=== PATIENT | female | born 2000 | race Caucasian/White ===

== ENCOUNTER 2021-04-12 21:34 | Emergency (ER) | payer OTHER ==
--- OUTSIDE RECORDS SUMMARY | 2021-04-12 21:41 | XMS REPORT | Continuity of Care Document ---
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 ULTRASOUND REPEAT 2019-04-26 00:00:00 [facility] Plan of Care Planned Activity Planned Date Details Comments Source Future Scheduled 2022-06-13 Screening for Pete Cotton lt Test 00:00:00 malignant neoplasm of cervix (procedure) [code = 499878987] Future Scheduled 2022-01-15 COVID-19 Vaccine Postponed from [facility] Test 00:00:00 (1) [code = 2011 COVID-19 Vaccine (Patient Refused) (1)] Future Scheduled 2021-06-13 IMM Influenza Pete Cotton [facility] Test 00:00:00 Seasonal Jun to November (>/= 19 yrs) [code = IMM Influenza Seasonal Jun to November (>/= 19 yrs)] Diagnostic Test 2020-03-20 urinalysis, [place] Pending 00:00:00 dipstick [code = Medical José up urinalysis, dipstick] Diagnostic Test 2020-03-20 test, [place] Pending 00:00:00 urine [code = Medical Group test, urine] Diagnostic Test 2020-03-20 culture, urine [place] Pending 00:00:00 [code = culture, Medical José up urine] Instructions [facility] Encounters Start End Encounter Admission Attending Care Care Encounter Source Date/Time Date/Time Type Type Clinicians Facility Department ID 2021-03-28 2021-03-28 Telephone JEEVAN Cornell 6410 [id number] 00:00:00 00:00:00 [facility]UGH[facility] [id number] Health S [id number] 2021-03-18 2021-03-18 Telephone JEEVAN oWrley [id number] 00:00:00 00:00:00 Katrin YAP [id number] MEDICAL [id number] [facility] [id number] 2021-03-11 2021-03-11 Office Kandy Howe [facility] 7 [facility] 00:00:00 00:00:00 Visit Miguel Haq [id number] [facility] Bertha Carpenter Krishnan Magali Dilan [facility] 2021-02-03 2021-02-03 Office Katrin Worley [facility] 74 [facility] 00:00:00 00:00:00 Visit Santino Laureen 1052 [id number] [facility] 2021-01-16 2021-01-20 Outpatient SUE, [facility] [id number] [facility] 15:03:38 08:55:31 TJ 2021-01-16 2021-01-16 Outpatient PRESTON, [facility] [id number] [facility] 15:03:34 16:09:38 SINDHU 2021-01-15 2021-01-15 Outpatient ALYSE, [facility] [id number] [place] 14:11:31 14:26:12 [facility] 2021-01-10 2021-01-10 Office Rubin Almeida [facility] [id number] [facility] 00:00:00 00:00:00 Visit Edie Romero [id number] [facility] 2020-12-31 2020-12-31 Emergency Herbert, [facility] [id number] 03:07:00 03:20:00 Chaz Salmon [id number] [place] 4.2.7.2.686 [place] [id number] 2020-12-28 2020-12-28 Emergency Yarine, [facility] [id number] 21:22:00 23:49:00 Mattie Salmon [id number] [place] 4.2.7.2.686 [place] [id number] 2020-12-19 2020-12-19 Office Katrin Worley [facility] 74 [facility] 00:00:00 00:00:00 Visit SantinoLaureen 1040 8 [facility] Makenna Max [facility] 2020-10-12 2020-10-12 Emergency [facility] [id number] [place] 12:45:00 13:30:00 [facility] 2020-08-27 2020-08-27 UTI SITE E DANIELLE, [facility] [id number] 21:01:00 23:53:00 NOT CLAY [facility] L ukes - SPECIFIED N, [address], [place] [address] 2020-08-27 2020-08-27 Inpatient [facility] [id number] [facility] 00:00:00 00:00:00 [facility] [id number] [facility], [id number] BYPASS, ([place] [address] 2020-08-27 2020-08-27 Inpatient [facility] [id number] [facility] 00:[facility]00 00:00:00 [facility] [id number] [facility], [id number] BYPASS, ([place] [address] 2020-07-10 2020-07-10 Broker In Charge 2, Adc Lab [facility] [id number] 10:53:29 11:08:29 Visit Viky 350.1.13.10 [place] 4.2.7.2.686 Professio [id number] 2020-07-02 2020-07-02 Orders Doctor WIL [id number] 00:00:00 00:00:00 Only Unassigned, SUKHJINDER 350.1.13.10 [place] [facility] 4.2.7.2.686 [id number] 2020-03-20 2020-03-20 Senait Vail MM [place] - [id number] [place] 00:00:00 00:00:00 Discovery akosua Paulino WHNP: [address] [address], [place] [address] , Ph. [phone] 2020-03-11 2020-03-11 Mark MENDOZA [place] - [id number] M at[place] 00:00:00 00:00:00 Mary Guerrero MD: [facility] [address] Progr am , Ph. ([phone]) --[phone] 2020-02-12 Senait Vail [facility] [place] - [id number] [place] 00:00:00 00:00:00 Discovery akosua Paulino WHNP: [address] [place] [address] , Ph. [phone] 2019-09-07 2019-09-07 Wil MENDOZA [place] - [id number] M at[place]or 00:00:00 00:00:00 Nader Valladares PSYD: 1700 [facility] E[facility], [facility], Behavioral He [facility] [address] [facility] am , Ph. ([phone]) --[phone] 2019-08-21 Mark REJI [place] - [id number] M at[place]or 00:00:00 00:00:00 Mary Guerrero MD: [facility] [facility] Healt Av, [facility], [facility] [address] , Ph. ([phone]) --[phone] 2019-08-07 Shahzad [facility] [place] - [id number] M at[place]or 00:00:00 00:00:00 Discovery akosua Mead MD: [address] [place] [address] , Ph. [phone] 2019-07-14 2019-07-14 Shahzad FUENTES [place] - [id number] M at[place]or 00:00:00 00:00:00 Discovery akosua Mead MD: [address] [place] [address] , Ph. [phone] 2019-06-27 2019-06-27 Shahzad [facility] [place] - [id number] M at[place]or 00:00:00 00:00:00 Discovery akosua Mead MD: [address] [place] [address] , Ph. [phone] 2019-06-13 2019-06-13 Senait Vail [facility] [place] - [id number] [place] 00:00:00 00:00:00 Discovery akosua Paulino WHNP: [facility] Medical [address] [address] , Ph. [phone] 2019-05-30 2019-05-30 Radha [facility] [place] - [id number] M at[place]or 00:00:00 00:00:00 Wayne Harvey [facility] MD: [address] [place] [address] , Ph. [phone] 2019-05-01 2019-05-01 Shahzad [facility] [place] - [id number] M at[place]or 00:00:00 00:00:00 Discovery akosua Mead MD: [address] [place] [address] , Ph. [phone] 2019-04-26 2019-04-26 Shahzad [facility] [place] - [id number] M atagor 00:00:00 00:00:00 Discovery akosua Mead MD: [address] [place] [address] , Ph. [phone] 2019-02-17 2019-02-17 Outpatient [facility] [id number] [place] 09:43:48 09:43:48 Health 2019-02-16 2019-02-16 Outpatient [facility] [id number] [place] 00:00:00 00:00:00 Health 2019-02-15 2019-02-15 Outpatient [facility] [id number] [place] 13:34:01 13:34:01 Health 2019-02-15 2019-02-15 Outpatient [facility] [id number] [place] 07:37:37 07:37:37 Health 2019-02-15 2019-02-15 Outpatient [facility] [id number] [place] 00:00:00 00:00:00 Health Results Test Description Test Time Test Comments Results Result Comments Source alpha-1 fetoprotein, maternal ,serum, multiples of median 20 03-03-29 12:23:00 Test Item Value Reference Range Interpretation Comme nts alpha-1 fetoprotein, maternal ,serum, multiples of median (t est code = 0.98 (?) 3105) [facility], [id number] 12:23:00 Test Item Value Reference Range Interpretation Comments alpha-1 fetoprotein, serum (test 36.9 ng/mL code = 2754) [facility] interpretation of [id number] 12:23:00 Test Item Value Reference Range Interpretation Comments alpha-fetoprotein Screen negative for interpretation of results open NTD. Please (test code = 8076) Note: Th... [facility] [id number] 12:22:00 Test Item Value Reference Range Interpretation Comments urine culture (test Greater than 100,000 code = 630-4) CFU/mL of [facility] HospitalCandida Vaginitis Panel by Real-Time PCR (albicans,glabrata,tropicalis,parapsilosis)2021-02-03 19:06:00 Test Item Value Reference Range Interpretation Comments Caron Vaginitis Panel by Real-Time DETECTED NOT DETECTED A PCR (albicans,glabrata,tropicalis,paraps ilosis) (test code = 828934) [facility] by Real-Time [id number] 19:06:00 Test Item Value Reference Range Interpretation Comments Gardnerella vaginalis by Real-Time DETECTED NOT DETECTED A PCR (test code = 198312) [facility] HospitalTRICHOMONAS VAGINALIS DNA [id number] 19:06:00 Test Item Value Reference Range Interpretation Comments TRICHOMONAS VAGINALIS DNA PROBE NOT DETECTED NOT DETECTED N (test code = 022008) [facility] [id number] 17:57:00 Test Item Value Reference Range Interpretation Comments urine culture (test 50,000-100,000 CFU/mL of A code = 630-4) Group B Streptococcus ... [facility] HospitalCoronavirus, CoVID-19 - [id number] 01:07:00 Test Item Value Reference Interpretation Comments Range CoVID-19 Not Detected Not Detected This nucleic ac id amplification (SARS-CoV- test was danay zavaleta and its 2) (test performancechar acteristics code = determined by Klaudia Taylor 42131-2) Laboratories. [facility] acidamplificati on tests include RT-PCR and TMA. This test has not beenFDA chago ared or approved. This test has been authorized by F AKOSUA underan Emergency Use A uthorization (EUA). This anamika t is only authorizedfor t he duration of time the declar ation that circumstances e xistjustifying the authorizati on of the emergency use o f in vitrodiagnostic tests for detection of SA RS-CoV-2 virus and/or diagnosi sof COVID-19 infection under section 564(b)(1) of th e Act, 21 U.S.C.360bbb-3( b) (1), unless the authorizati on is terminated or revokedsoone r.When diagnostic test ing is negative, the possibility of a falsenegative r esult should be considered in t he context of a patient'srecent exposures and the presence of clinical signs and symptomscon sistent with COVID-19. An in dividual without symptoms of COV ID-19and who is not shedding SA RS-CoV-2 virus would expect to have anegative (not detected) result in this assay. JORGE (test Performed at: code = - [facility] JORGE) [address] [id number] Director: Brendon Valerio MD, Phone: [phone] [facility]-COV-2, KJ 2 DAY [id number] 01:07:00 Test Item Value Reference Range Interpretation Comments SARS-CoV-2, KJ 2 Performed DAY TAT (test code = 164472348) JORGE (test code = Performed at: - JORGE) [address] [id number] Director: Feliz Strar MD, Phone: [phone] [facility] RAPID [id number] 00:00:00 Test Item Value Reference Range Interpretation Comments Rapid HIV Result (test code = 09495) Negative Rapid HIV Control (test code = Pass 96226) [facility] [id number] 15:58:00 Test Item Value Reference Range Interpretation Comments Neisseria gonorrhoeae DNA probe NOT DETECTED NOT DETECTED N (test code = 42320-9) [facility] Hospitalchlamydia DNA [id number] 15:58:00 Test Item Value Reference Range Interpretation Comments chlamydia DNA probe (test code = NOT DETECTED NOT DETECTED N 28398-0) [facility] Hospitalurine [id number] 15:57:00 Test Item Value Reference Range Interpretation Comments urine culture (test Greater than 100,000 A code = 630-4) CFU/mL of Escherichia coli [facility] HospitalCandida Vaginitis Panel by Real-Time PCR (albicans,glabrata,tropicalis,parapsilosis)2020-12-19 15:46:00 Test Item Value Reference Range Interpretation Comments Caron Vaginitis Panel by NOT DETECTED NOT DETECTED N Real-Time PCR (albicans,glabrata,tropicalis,pa rapsilosis) (test code = 084313) [facility] vaginalis by Real-Time [id number] 15:46:00 Test Item Value Reference Range Interpretation Comments Gardnerella vaginalis by NOT DETECTED NOT DETECTED N Real-Time PCR (test code = 222023) [facility] HospitalTRICHOMONAS VAGINALIS DNA [id number] 15:46:00 Test Item Value Reference Range Interpretation Comments TRICHOMONAS VAGINALIS DNA PROBE NOT DETECTED NOT DETECTED N (test code = 158877) [facility] [id number] 15:46:00 Test Item Value Reference Range Interpretation Comments Rh antigen (test code = 255) RH(D) POSITIVE [facility] HospitalABO blood [id number] 15:46:00 Test Item Value Reference Range Interpretation Comments ABO blood group (test code = 116) A [facility] [id number] 15:46:00 Test Item Value Reference Range Interpretation Comments Rh antibody (test code NO ANTIBODIES DETECTED N = 256) [facility] Hospitalrapid plasma reagin antibody, [id number] 15:46:00 Test Item Value Reference Range Interpretation Comments rapid plasma reagin antibody, NON-REACTIVE NON-REACTIVE N serum (test code = 5291-0) [facility] HospitalHepatitis C Antibody, Signal to [id number] 15:46:00 Test Item Value Reference Range Interpretation Comments Hepatitis C Antibody, 0.03 (unknown unit) <1.00 N Signal to Cut-Off (test code = 559967) [facility] Hospitalhepatitis C antibody, [id number] 15:46:00 Test Item Value Reference Range Interpretation Comments hepatitis C antibody, serum NON-REACTIVE NON-REACTIVE N (test code = 5199-5) [facility] Hospitalhepatitis B surface [id number] 15:46:00 Test Item Value Reference Range Interpretation Comments hepatitis B surface antigen NON-REACTIVE NON-REACTIVE N (test code = 79) [facility] Healthbasophils as percent of blood [id number] 15:46:00 Test Item Value Reference Range Interpretation Comments basophils as percent of blood 0.5 % N leukocytes (test code = 707-0) [facility] Hospitaleosinophils as percent of blood [id number] 15:46:00 Test Item Value Reference Range Interpretation Comments eosinophils as percent of blood 0.8 % N leukocytes (test code = 714-6) [facility] Healthmonocytes as percent of blood [id number] 15:46:00 Test Item Value Reference Range Interpretation Comments monocytes as percent of blood 6.2 % N leukocytes (test code = 5905-5) [facility] Hospitallymphocytes as percent of blood [id number] 15:46:00 Test Item Value Reference Range Interpretation Comments lymphocytes as percent of blood 16.8 % N leukocytes (test code = 736-9) [facility] Hospitalneutrophils as percent of blood [id number] 15:46:00 Test Item Value Reference Range Interpretation Comments neutrophils as percent of blood 75.7 % N leukocytes (test code = 770-8) [facility] Hospitalbasophil count, [id number] 15:46:00 Test Item Value Reference Range Interpretation Comments basophil count, absolute (test 43 cells/uL 0-200 N code = 63460-5) [facility] HospitalAbsolute Eosinophil [id number] 15:46:00 Test Item Value Reference Range Interpretation Comments Absolute Eosinophil count (test 69 cells/mcL 15-500 N code = 70200-6) [facility] HospitalAbsolute Monocyte [id number] 15:46:00 Test Item Value Reference Range Interpretation Comments Absolute Monocyte count (test 533 cells/mcL 200-950 N code = 42706-1) [facility] Hospitallymphocytes, [id number] 15:46:00 Test Item Value Reference Range Interpretation Comments lymphocytes, absolute (test 1445 CELLS/UL 850-3900 N code = 70296-9) [facility] HospitalAbsolute Neutrophil [id number] 15:46:00 Test Item Value Reference Range Interpretation Comments Absolute Neutrophil count 6510 cells/mcL 0565-0610 N (test code = 71644-1) [facility] [id number] 15:46:00 Test Item Value Reference Range Interpretation Comments mean platelet volume (test code = 12.0 fL 7.5-12.5 N 776-5) [facility] Hospitalplatelet [id number] 15:46:00 Test Item Value Reference Range Interpretation Comments platelet count (test code = 323 THOUSAND/UL 140-400 N 777-3) [facility] Hospitalred blood cell distribution [id number] 15:46:00 Test Item Value Reference Range Interpretation Comments red blood cell distribution width 19.8 % 11.0-15.0 H (test code = 788-0) [facility] corpuscular hemoglobin concentration, [id number] 15:46:00 Test Item Value Reference Range Interpretation Comments mean corpuscular hemoglobin 30.4 G/DL 32.0-36.0 L concentration, RBC (test code = 786-4) [facility] corpuscular hemoglobin, [id number] 15:46:00 Test Item Value Reference Range Interpretation Comments mean corpuscular hemoglobin, RBC 21.0 pg 27.0-33.0 L (test code = 785-6) [facility] corpuscular volume, [id number] 15:46:00 Test Item Value Reference Range Interpretation Comments mean corpuscular volume, RBC (test 69.0 fL 80.0-100.0 L code = 787-2) [facility] Hospitalhematocrit, [id number] 15:46:00 Test Item Value Reference Range Interpretation Comments hematocrit, blood (test code = 4544-3) 33.2 % 35.0-45.0 L [facility] Hospitalhemoglobin, [id number] 15:46:00 Test Item Value Reference Range Interpretation Comments hemoglobin, blood (test code = 10.1 g/dL 11.7-15.5 L 718-7) [facility] Hospitalerythrocyte (RBC) [id number] 15:46:00 Test Item Value Reference Range Interpretation Comments erythrocyte (RBC) count (test 4.81 MILLION/UL 3.80-5.10 N code = 789-8) [facility] Hospitalleukocyte count, [id number] 15:46:00 Test Item Value Reference Range Interpretation Comments leukocyte count, blood (test 8.6 THOUSAND/UL 3.8-10.8 N code = 6690-2) [facility] Hospitalblood glucose, 1 hour after 50 gm oral [id number] 15:46:00 Test Item Value Reference Range Interpretation Comments blood glucose, 1 hour after 50 gm 78 mg/dL <135 N oral glucose (test code = 1039) [facility], serum, [id number] 15:46:00 Test Item Value Reference Range Interpretation Comments rubella antibody, serum, IgM (test <20.00 N code = 1015) [facility], serum, [id number] 15:46:00 Test Item Value Reference Range Interpretation Comments rubella antibody, serum, 3.85 (unknown unit) H IgG (test code = 5334-8) [facility] HospitalHIV-CMIA (Chemiluminescent Microparticle Immuno Assay) 2020-12-19 15:46:00 Test Item Value Reference Range Interpretation Comments HIV-CMIA (Chemiluminescent NON-REACTIVE NON-REACTIVE N Microparticle Immuno Assay) (test code = 801108) [facility] HospitalHerpes Simplex Virus [id number] 14:04:30 Test Item Value Reference Range Interpretation Comments Herpes Simplex Virus Genital (test code no = 4258) [facility] HospitalCystic Fibrosis DNA, Whole [id number] 00:00:00 Test Item Value Reference Range Interpretation Comments Cystic Fibrosis DNA, Whole Blood Negative N (test code = 75862) [facility] Hospitalbeta HCG, urine, xawasgacxpymcbjg6238-45-50 13:23:49 Test Item Value Reference Range Interpretation Comments beta HCG, urine, semiquantitative positive (test code = 2106-3) [facility] [id number] 13:12:01Sanam Tilley ResidentDO 10/12/2020 1:26 PMBedside Ultrasound Date/Time: 10/12/2020 1:18 PMPerformed by: Sanam Tilley ResidentDOAuthorized by: Lilia Olmos MD Consent: Consent obtained: Verbal Consent given by: PatientPost-procedure details: Patient tolerance of procedure: Toleratedwell, no immediate complicationsComments: Bedside right LE US for DVT. Indication - RLE pain and swelling. Femoral (at location of Saphenous, fem artery bifurcation, fem vein bifurcation) and popliteal veins visualized and fully compressible. Negative study. Performed and interpreted by me.[facility] 2020-08-27 23:20:00 Test Item Value Reference Range Interpretation Comments Color (test code = UCOLR) Yellow Clarity (test code = UCLAR) Sl Cloudy Glucose (test code = UGLUC) NEGATIVE NEGATIVE N Bilirubin (test code = UBILI) NEGATIVE NEGATIVE N Ketones (test code = UKET) NEGATIVE NEGATIVE N Specific [place] (test code = >=1.030 1.005-1.030 A USPGR) Blood (test code = UBLD) MODERATE NEGATIVE A PH (test code = UPH) 6.0 4.5-8.0 A Protein (test code = UPROT) 100 NEGATIVE A Urobilinogen (test code = U UROB) 0.2 >0.2 N Nitrite (test code = UNITR) NEGATIVE NEGATIVE N Leukocyte Esterase (test code = SMALL NEGATIVE A ULEUK) WBC (test code = WBCUR) TNTC 0-5 A RBC (test code = RBCUR) TNTC 0-5 A Epithial Cells (test code = U EPI) 5-10 0-10 A Bacteria (test code = UBACT) 3+ None Seen,Trace A TEST, Urine [id number] 23:20:00 Test Item Value Reference Range Interpretation Comments (Urine) (test code = Negative PREGU) If a specimen is collected by a nurse, then you MUST fill out the Collected and Collected By spencer Urinalysis macro (dipstick) panel - [id number] 14:39:06 Test Item Value Reference Range Interpretation Comments Leukocytes (test code = Leukocytes) Small Nitrite (test code = Nitrite) positive Urobilinogen (test code = .2 Urobilinogen) Protein (test code = Protein) 30 pH (test code = pH) 6.5 Blood (test code = Blood) Large Specific [place] (test code = 1.030 Specific [place]) Ketone (test code = Ketone) Trace Bilirubin (test code = Bilirubin) Negative Glucose (test code = Glucose) Negative Appearance (test code = Appearance) Clear Color (test code = Color) Yellow [facility]dip[facility] panel - [id number] 14:39:06 Test Item Value Reference Range Interpretation Comments Leukocytes (test code = Leukocytes) Small Nitrite (test code = Nitrite) positive Urobilinogen (test code = .2 Urobilinogen) Protein (test code = Protein) 30 pH (test code = pH) 6.5 Blood (test code = Blood) Large Specific [place] (test code = 1.030 Specific [place]) Ketone (test code = Ketone) Trace Bilirubin (test code = Bilirubin) Negative Glucose (test code = Glucose) Negative Appearance (test code = Appearance) Clear Color (test code = Color) Yellow [facility], [id number] 14:26:06 Test Item Value Reference Range Interpretation Comments Test (test code = negative Test) [facility] W Auto Differential panel - [id number] 02:47:00 Test Item Value Reference Range Interpretation Comments white blood count (test code = 11.6 K/uL 4.0-11.5 white blood count) red blood count (test code = red 3.86 M/uL 3.80-5.20 blood count) hemoglobin (test code = 10.6 g/dL 10.5-15.7 hemoglobin) hematocrit (test code = 32.1 % 34.0-50.0 L hematocrit) Erythrocyte mean corpuscular 83.2 fL 86-100 L volume [Entitic volume] (test code = 80521-3) mean corpuscular hemoglobin (test 27.5 pg 26.2-33.4 code = mean corpuscular hemoglobin) mean corpuscular HGB conc (test 33.0 g/dL 30-34 code = mean corpuscular HGB conc) red cell distribution width (test 15.5 % 12.0-15.5 code = red cell distribution width) platelet count (test code = 162 K/uL 165-450 L platelet count) mean platelet volume (test code = 12.8 fL 9.4-12.6 H mean platelet volume) Neutrophils.segmented/100 65.4 % 44.4-80.1 leukocytes in Blood (test code = 39575-7) Granulocytes Immature [#/volume] 0.1 K/uL 0.0-0.03 H in Blood (test code = 83685-7) lymphocyte% (test code = 24.5 % 10.0-50.0 lymphocyte%) mono % (test code = mono %) 7.3 % 3.6-12.0 eos % (test code = eos %) 1.9 % 0.0-5.4 Basophils/100 leukocytes in 0.3 % 0.1-1.2 Unspecified specimen (test code = 94267-2) Neutrophils.band form [#/volume] 7.60 K/uL 1.56-6.13 H in Blood (test code = 70903-7) Lymphocytes [#/volume] in 2.9 K/uL 1.18-3.74 Unspecified specimen by Automated count (test code = 67960-0) mono # (test code = mono #) 0.85 K/uL 0.24-0.86 eos # (test code = eos #) 0.22 K/uL 0.04-0.36 basophil # (test code = basophil 0.04 K/uL 0.01-0.08 #) NRBC% (test code = NRBC%) 0 /100 WBC 0-0.2 NRBC# (test code = NRBC#) 0 K/uL [facility] W Auto Differential panel - [id number] 00:00:00 Test Item Value Reference Range Interpretation Comments white blood count (test code = 11.6 K/uL 4.0-11.5 white blood count) red blood count (test code = red 3.86 M/uL 3.80-5.20 blood count) hemoglobin (test code = 10.6 g/dL 10.5-15.7 hemoglobin) hematocrit (test code = 32.1 % 34.0-50.0 L hematocrit) Erythrocyte mean corpuscular 83.2 fL 86-100 L volume [Entitic volume] (test code = 98275-9) mean corpuscular hemoglobin (test 27.5 pg 26.2-33.4 code = mean corpuscular hemoglobin) mean corpuscular HGB conc (test 33.0 g/dL 30-34 code = mean corpuscular HGB conc) red cell distribution width (test 15.5 % 12.0-15.5 code = red cell distribution width) platelet count (test code = 162 K/uL 165-450 L platelet count) mean platelet volume (test code = 12.8 fL 9.4-12.6 H mean platelet volume) Neutrophils.segmented/100 65.4 % 44.4-80.1 leukocytes in Blood (test code = 58023-6) Granulocytes Immature [#/volume] 0.1 K/uL 0.0-0.03 H in Blood (test code = 55788-9) lymphocyte% (test code = 24.5 % 10.0-50.0 lymphocyte%) mono % (test code = mono %) 7.3 % 3.6-12.0 eos % (test code = eos %) 1.9 % 0.0-5.4 Basophils/100 leukocytes in 0.3 % 0.1-1.2 Unspecified specimen (test code = 70779-5) Neutrophils.band form [#/volume] 7.60 K/uL 1.56-6.13 H in Blood (test code = 69506-6) Lymphocytes [#/volume] in 2.9 K/uL 1.18-3.74 Unspecified specimen by Automated count (test code = 10331-6) mono # (test code = mono #) 0.85 K/uL 0.24-0.86 eos # (test code = eos #) 0.22 K/uL 0.04-0.36 basophil # (test code = basophil 0.04 K/uL 0.01-0.08 #) NRBC% (test code = NRBC%) 0 /100 WBC 0-0.2 NRBC# (test code = NRBC#) 0 K/uL [facility] W Auto Differential panel - [id number] 10:04:00 Test Item Value Reference Range Interpretation Comments white blood count (test code = 8.8 K/uL 4.0-11.5 white blood count) red blood count (test code = red 4.39 M/uL 3.80-5.20 blood count) hemoglobin (test code = 12.3 g/dL 10.5-15.7 hemoglobin) hematocrit (test code = 37.9 % 34.0-50.0 hematocrit) Erythrocyte mean corpuscular 86.3 fL 86-100 volume [Entitic volume] (test code = 97835-8) mean corpuscular hemoglobin (test 28.0 pg 26.2-33.4 code = mean corpuscular hemoglobin) mean corpuscular HGB conc (test 32.5 g/dL 30-34 code = mean corpuscular HGB conc) red cell distribution width (test 15.4 % 12.0-15.5 code = red cell distribution width) platelet count (test code = 186 K/uL 165-450 platelet count) mean platelet volume (test code = 12.7 fL 9.4-12.6 H mean platelet volume) Neutrophils.segmented/100 74.3 % 44.4-80.1 leukocytes in Blood (test code = 02573-9) Granulocytes Immature [#/volume] 0.0 K/uL 0.0-0.03 H in Blood (test code = 33097-1) lymphocyte% (test code = 18.0 % 10.0-50.0 lymphocyte%) mono % (test code = mono %) 5.2 % 3.6-12.0 eos % (test code = eos %) 1.5 % 0.0-5.4 Basophils/100 leukocytes in 0.5 % 0.1-1.2 Unspecified specimen (test code = 91969-1) Neutrophils.band form [#/volume] 6.55 K/uL 1.56-6.13 H in Blood (test code = 54896-4) Lymphocytes [#/volume] in 1.6 K/uL 1.18-3.74 Unspecified specimen by Automated count (test code = 85966-0) mono # (test code = mono #) 0.46 K/uL 0.24-0.86 eos # (test code = eos #) 0.13 K/uL 0.04-0.36 basophil # (test code = basophil 0.04 K/uL 0.01-0.08 #) NRBC% (test code = NRBC%) 0 /100 WBC 0-0.2 NRBC# (test code = NRBC#) 0 K/uL [facility] HospitalReagin [facility] [Presence] in Serum by [id number] 10:04:00 Test Item Value Reference Range Interpretation Comments Reagin Ab [Presence] in Serum by nonreactive nonreactive RPR (test code = 59181-6) [facility] HospitalHepatitis B virus surface Ag [Presence] in Serum 2019-06-27 10:04:00 Test Item Value Reference Range Interpretation Comments .hepatitis B surface antigen (test negative negative code = .hepatitis B surface antigen) [facility] W Auto Differential panel - [id number] 00:00:00 Test Item Value Reference Range Interpretation Comments white blood count (test code = 8.8 K/uL 4.0-11.5 white blood count) red blood count (test code = red 4.39 M/uL 3.80-5.20 blood count) hemoglobin (test code = 12.3 g/dL 10.5-15.7 hemoglobin) hematocrit (test code = 37.9 % 34.0-50.0 hematocrit) Erythrocyte mean corpuscular 86.3 fL 86-100 volume [Entitic volume] (test code = 12093-5) mean corpuscular hemoglobin (test 28.0 pg 26.2-33.4 code = mean corpuscular hemoglobin) mean corpuscular HGB conc (test 32.5 g/dL 30-34 code = mean corpuscular HGB conc) red cell distribution width (test 15.4 % 12.0-15.5 code = red cell distribution width) platelet count (test code = 186 K/uL 165-450 platelet count) mean platelet volume (test code = 12.7 fL 9.4-12.6 H mean platelet volume) Neutrophils.segmented/100 74.3 % 44.4-80.1 leukocytes in Blood (test code = 94521-0) Granulocytes Immature [#/volume] 0.0 K/uL 0.0-0.03 H in Blood (test code = 64690-0) lymphocyte% (test code = 18.0 % 10.0-50.0 lymphocyte%) mono % (test code = mono %) 5.2 % 3.6-12.0 eos % (test code = eos %) 1.5 % 0.0-5.4 Basophils/100 leukocytes in 0.5 % 0.1-1.2 Unspecified specimen (test code = 20832-4) Neutrophils.band form [#/volume] 6.55 K/uL 1.56-6.13 H in Blood (test code = 30462-4) Lymphocytes [#/volume] in 1.6 K/uL 1.18-3.74 Unspecified specimen by Automated count (test code = 19450-3) mono # (test code = mono #) 0.46 K/uL 0.24-0.86 eos # (test code = eos #) 0.13 K/uL 0.04-0.36 basophil # (test code = basophil 0.04 K/uL 0.01-0.08 #) NRBC% (test code = NRBC%) 0 /100 WBC 0-0.2 NRBC# (test code = NRBC#) 0 K/uL [facility]Re[facility] [Presence] in Serum by [id number] 00:00:00 Test Item Value Reference Range Interpretation Comments Reagin Ab [Presence] in Serum by nonreactive nonreactive RPR (test code = 26980-0) [facility] HospitalHepatitis B virus surface Ag [Presence] in Serum 2019-06-27 00:00:00 Test Item Value Reference Range Interpretation Comments .hepatitis B surface antigen (test negative negative code = .hepatitis B surface antigen) [facility] HospitalUrinalysis macro (dipstick) panel - [id number] 09:50:31 Test Item Value Reference Range Interpretation Comments Leukocytes (test code = Leukocytes) Trace Nitrite (test code = Nitrite) negative Urobilinogen (test code = .2 Urobilinogen) Protein (test code = Protein) Negative pH (test code = pH) 7.0 Blood (test code = Blood) Negative Specific [place] (test code = 1.020 Specific [place]) Ketone (test code = Ketone) Negative Bilirubin (test code = Bilirubin) Negative Glucose (test code = Glucose) Negative Appearance (test code = Appearance) Clear Color (test code = Color) Yellow [facility] HospitalUrinalysis macro (dipstick) panel - [id number] 09:50:31 Test Item Value Reference Range Interpretation Comments Leukocytes (test code = Leukocytes) Trace Nitrite (test code = Nitrite) negative Urobilinogen (test code = .2 Urobilinogen) Protein (test code = Protein) Negative pH (test code = pH) 7.0 Blood (test code = Blood) Negative Specific [place] (test code = 1.020 Specific [place]) Ketone (test code = Ketone) Negative Bilirubin (test code = Bilirubin) Negative Glucose (test code = Glucose) Negative Appearance (test code = Appearance) Clear Color (test code = Color) Yellow [facility] HospitalUr[facility]ysis macro (dipstick) panel - [id number] 09:50:31 Test Item Value Reference Range Interpretation Comments Leukocytes (test code = Leukocytes) Trace Nitrite (test code = Nitrite) negative Urobilinogen (test code = .2 Urobilinogen) Protein (test code = Protein) Negative pH (test code = pH) 7.0 Blood (test code = Blood) Negative Specific [place] (test code = 1.020 Specific [place]) Ketone (test code = Ketone) Negative Bilirubin (test code = Bilirubin) Negative Glucose (test code = Glucose) Negative Appearance (test code = Appearance) Clear Color (test code = Color) Yellow [facility] HospitalUrinalysis macro (dipstick) panel - [id number] 09:50:31 Test Item Value Reference Range Interpretation Comments Leukocytes (test code = Leukocytes) Trace Nitrite (test code = Nitrite) negative Urobilinogen (test code = .2 Urobilinogen) Protein (test code = Protein) Negative pH (test code = pH) 7.0 Blood (test code = Blood) Negative Specific [place] (test code = 1.020 Specific [place]) Ketone (test code = Ketone) Negative Bilirubin (test code = Bilirubin) Negative Glucose (test code = Glucose) Negative Appearance (test code = Appearance) Clear Color (test code = Color) Yellow [facility] GroupChlamydia trachomatis+Neisseria gonorrhoeae DNA [Presence] in Cervix by Probe and target amplification [id number] 08:46:00 [facility] GroupChlamydia trachomatis+Neisseria gonorrhoeae DNA [Presence] in Cervix by Probe and target amplification [id number] 08:46:00 [facility] HospitalChlamydia trachomatis+Neisseria gonorrhoeae DNA [Presence] in Cervix by Probe and target amplification [id number] 08:46:00 ResultsWay[facility] HospitalUrinalysis complete panel - [id number] 12:30:00 Test Item Value Reference Range Interpretation Comments Color of Urine by Auto (test light yellow code = 54259-6) Appearance of Urine (test code = clear clear 5767-9) Glucose [Presence] in Urine by negative negative Automated test strip (test code = 38639-5) Bilirubin.total [Mass/volume] in negative negative Urine (test code = 1978-6) Ketones [Mass/volume] in Urine negative negative by Automated test strip (test code = 63315-1) Specific gravity of Urine by 1.018 1.003-1.030 Automated test strip (test code = 07021-3) blood urine (test code = blood negative negative urine) pH of Urine (test code = 2756-5) 8.000 5-9 protein urine (UA) (test code = trace negative protein urine (UA)) Urobilinogen [Presence] in Urine normal 0.2-1.0 (test code = 04759-4) Nitrite [Presence] in Urine by negative negative Test strip (test code = 5802-4) Leukocyte esterase [Presence] in negative negative Urine by Automated test strip (test code = 52166-6) Erythrocytes [#/volume] in Urine <1 0-5 by Automated count (test code = 798-9) Leukocytes [#/area] in Urine =6-10 0-5 H sediment by Automated count (test code = 56370-7) Epithelial cells [Presence] in =1-5 0-5 Urine sediment by Light microscopy (test code = 78375-1) Bacteria identified in Urine by moderate (2 none detect H Culture (test code = 630-4) Casts [#/area] in Urine sediment =2-5 none detect by Automated count (test code = 29657-6) urine culture added? (test code yes = urine culture added?) [facility] HospitalBacteria identified in Urine by [id number] 12:30:00 Test Item Value Reference Range Interpretation Comments Bacteria identified in no growth at 48 hrs. Urine by Culture (test code = 630-4) [facility] HospitalUrinalysis complete panel - [id number] 12:30:00 Test Item Value Reference Range Interpretation Comments Color of Urine by Auto (test light yellow code = 60347-0) Appearance of Urine (test code = clear clear 5767-9) Glucose [Presence] in Urine by negative negative Automated test strip (test code = 95043-8) Bilirubin.total [Mass/volume] in negative negative Urine (test code = 1978-6) Ketones [Mass/volume] in Urine negative negative by Automated test strip (test code = 15970-1) Specific gravity of Urine by 1.018 1.003-1.030 Automated test strip (test code = 62364-9) blood urine (test code = blood negative negative urine) pH of Urine (test code = 2756-5) 8.000 5-9 protein urine (UA) (test code = trace negative protein urine (UA)) Urobilinogen [Presence] in Urine normal 0.2-1.0 (test code = 35119-9) Nitrite [Presence] in Urine by negative negative Test strip (test code = 5802-4) Leukocyte esterase [Presence] in negative negative Urine by Automated test strip (test code = 00980-4) Erythrocytes [#/volume] in Urine <1 0-5 by Automated count (test code = 798-9) Leukocytes [#/area] in Urine =6-10 0-5 H sediment by Automated count (test code = 03773-1) Epithelial cells [Presence] in =1-5 0-5 Urine sediment by Light microscopy (test code = 54145-4) Bacteria identified in Urine by moderate (2 none detect H Culture (test code = 630-4) Casts [#/area] in Urine sediment =2-5 none detect by Automated count (test code = 07608-6) urine culture added? (test code yes = urine culture added?) [facility] GroupBacteria identified in Urine by [id number] 12:30:00 Test Item Value Reference Range Interpretation Comments Bacteria identified in no growth at 48 hrs. Urine by Culture (test code = 630-4) [facility] GroupUrinalysis complete panel - [id number] 12:30:00 Test Item Value Reference Range Interpretation Comments Color of Urine by Auto (test light yellow code = 06883-4) Appearance of Urine (test code = clear clear 5767-9) Glucose [Presence] in Urine by negative negative Automated test strip (test code = 42792-8) Bilirubin.total [Mass/volume] in negative negative Urine (test code = 1978-6) Ketones [Mass/volume] in Urine negative negative by Automated test strip (test code = 67580-2) Specific gravity of Urine by 1.018 1.003-1.030 Automated test strip (test code = 69153-9) blood urine (test code = blood negative negative urine) pH of Urine (test code = 2756-5) 8.000 5-9 protein urine (UA) (test code = trace negative protein urine (UA)) Urobilinogen [Presence] in Urine normal 0.2-1.0 (test code = 96319-0) Nitrite [Presence] in Urine by negative negative Test strip (test code = 5802-4) Leukocyte esterase [Presence] in negative negative Urine by Automated test strip (test code = 47690-6) Erythrocytes [#/volume] in Urine <1 0-5 by Automated count (test code = 798-9) Leukocytes [#/area] in Urine =6-10 0-5 H sediment by Automated count (test code = 17555-2) Epithelial cells [Presence] in =1-5 0-5 Urine sediment by Light microscopy (test code = 71685-4) Bacteria identified in Urine by moderate (2 none detect H Culture (test code = 630-4) Casts [#/area] in Urine sediment =2-5 none detect by Automated count (test code = 35128-0) urine culture added? (test code yes = urine culture added?) [facility] GroupBacteria identified in Urine by [id number] 12:30:00 Test Item Value Reference Range Interpretation Comments Bacteria identified in no growth at 48 hrs. Urine by Culture (test code = 630-4) [facility] HospitalUr[facility] macro (dipstick) panel - [id number] 11:33:59 Test Item Value Reference Range Interpretation Comments Leukocytes (test code = Leukocytes) Negative Nitrite (test code = Nitrite) negative Urobilinogen (test code = .2 Urobilinogen) Protein (test code = Protein) Negative pH (test code = pH) 7.0 Blood (test code = Blood) Negative Specific [place] (test code = 1.020 Specific [place]) Ketone (test code = Ketone) Negative Bilirubin (test code = Bilirubin) Negative Glucose (test code = Glucose) Negative Appearance (test code = Appearance) Clear Color (test code = Color) Yellow [facility] HospitalUrinalysis macro (dipstick) panel - [id number] 11:33:59 Test Item Value Reference Range Interpretation Comments Leukocytes (test code = Leukocytes) Negative Nitrite (test code = Nitrite) negative Urobilinogen (test code = .2 Urobilinogen) Protein (test code = Protein) Negative pH (test code = pH) 7.0 Blood (test code = Blood) Negative Specific [place] (test code = 1.020 Specific [place]) Ketone (test code = Ketone) Negative Bilirubin (test code = Bilirubin) Negative Glucose (test code = Glucose) Negative Appearance (test code = Appearance) Clear Color (test code = Color) Yellow [facility] HospitalUr[facility]ysis macro (dipstick) panel - [id number] 11:33:59 Test Item Value Reference Range Interpretation Comments Leukocytes (test code = Leukocytes) Negative Nitrite (test code = Nitrite) negative Urobilinogen (test code = .2 Urobilinogen) Protein (test code = Protein) Negative pH (test code = pH) 7.0 Blood (test code = Blood) Negative Specific [place] (test code = 1.020 Specific [place]) Ketone (test code = Ketone) Negative Bilirubin (test code = Bilirubin) Negative Glucose (test code = Glucose) Negative Appearance (test code = Appearance) Clear Color (test code = Color) Yellow [facility] HospitalUr[facility] complete panel - [id number] 11:35:00 Test Item Value Reference Range Interpretation Comments Color of Urine by Auto (test code yellow = 16559-1) Appearance of Urine (test code = clear clear 5767-9) Glucose [Mass/volume] in Urine negative negative (test code = 2350-7) bilirubin, urine (test code = negative negative bilirubin, urine) ketone, urine (test code = negative negative ketone, urine) Specific gravity of Urine by <=1.005 1.003-1.030 Automated test strip (test code = 12358-6) Hemoglobin [Presence] in Urine by negative negative Test strip (test code = 5794-3) pH of Urine (test code = 2756-5) 7.500 5-9 protein urine (UA) (test code = negative negative protein urine (UA)) Urobilinogen [Presence] in Urine 0.2 E.U./dL 0.2-1.0 (test code = 82330-6) Nitrite [Presence] in Urine by negative negative Test strip (test code = 5802-4) urine leukocyte esterase (test negative negative code = urine leukocyte esterase) Erythrocytes [Presence] in Urine =0-3 0-5 (test code = 98204-7) WBC, urine (test code = WBC, =0-5 0-5 urine) Epithelial cells [Presence] in =0-5 0-5 Urine sediment by Light microscopy (test code = 66616-1) bacteria, urine (test code = trace none detect bacteria, urine) urine culture added? (test code = no urine culture added?) [facility] GroupUrinal[facility] complete panel - [id number] 11:35:00 Test Item Value Reference Range Interpretation Comments Color of Urine by Auto (test code yellow = 35453-9) Appearance of Urine (test code = clear clear 5767-9) Glucose [Mass/volume] in Urine negative negative (test code = 2350-7) bilirubin, urine (test code = negative negative bilirubin, urine) ketone, urine (test code = negative negative ketone, urine) Specific gravity of Urine by <=1.005 1.003-1.030 Automated test strip (test code = 24319-7) Hemoglobin [Presence] in Urine by negative negative Test strip (test code = 5794-3) pH of Urine (test code = 2756-5) 7.500 5-9 protein urine (UA) (test code = negative negative protein urine (UA)) Urobilinogen [Presence] in Urine 0.2 E.U./dL 0.2-1.0 (test code = 38994-4) Nitrite [Presence] in Urine by negative negative Test strip (test code = 5802-4) urine leukocyte esterase (test negative negative code = urine leukocyte esterase) Erythrocytes [Presence] in Urine =0-3 0-5 (test code = 35735-2) WBC, urine (test code = WBC, =0-5 0-5 urine) Epithelial cells [Presence] in =0-5 0-5 Urine sediment by Light microscopy (test code = 18854-1) bacteria, urine (test code = trace none detect bacteria, urine) urine culture added? (test code = no urine culture added?) [facility] GroupUr[facility] complete panel - [id number] 11:35:00 Test Item Value Reference Range Interpretation Comments Color of Urine by Auto (test code yellow = 69266-4) Appearance of Urine (test code = clear clear 5767-9) Glucose [Mass/volume] in Urine negative negative (test code = 2350-7) bilirubin, urine (test code = negative negative bilirubin, urine) ketone, urine (test code = negative negative ketone, urine) Specific gravity of Urine by <=1.005 1.003-1.030 Automated test strip (test code = 79685-0) Hemoglobin [Presence] in Urine by negative negative Test strip (test code = 5794-3) pH of Urine (test code = 2756-5) 7.500 5-9 protein urine (UA) (test code = negative negative protein urine (UA)) Urobilinogen [Presence] in Urine 0.2 E.U./dL 0.2-1.0 (test code = 84865-5) Nitrite [Presence] in Urine by negative negative Test strip (test code = 5802-4) urine leukocyte esterase (test negative negative code = urine leukocyte esterase) Erythrocytes [Presence] in Urine =0-3 0-5 (test code = 12363-3) WBC, urine (test code = WBC, =0-5 0-5 urine) Epithelial cells [Presence] in =0-5 0-5 Urine sediment by Light microscopy (test code = 49151-6) bacteria, urine (test code = trace none detect bacteria, urine) urine culture added? (test code = no urine culture added?) [facility] GroupGlucose [Mass/volume] in Serum or Plasma --1 hour post dose [id number] 10:05:00 Test Item Value Reference Range Interpretation Comments Results (test code = 124 mg/dl, passed Results) [facility] GroupGlucose [Mass/volume] in Serum or Plasma --1 hour post dose [id number] 10:05:00 Test Item Value Reference Range Interpretation Comments Results (test code = 124 mg/dl, passed Results) [facility] (dipstick) panel - [id number] 09:11:28 Test Item Value Reference Range Interpretation Comments Leukocytes (test code = Leukocytes) Negative Nitrite (test code = Nitrite) negative Urobilinogen (test code = .2 Urobilinogen) Protein (test code = Protein) Negative pH (test code = pH) 6.0 Blood (test code = Blood) Negative Specific [place] (test code = 1.025 Specific [place]) Ketone (test code = Ketone) Negative Bilirubin (test code = Bilirubin) Negative Glucose (test code = Glucose) Negative Appearance (test code = Appearance) Clear Color (test code = Color) Yellow [facility]Ur[facility] (dipstick) panel - [id number] 09:11:28 Test Item Value Reference Range Interpretation Comments Leukocytes (test code = Leukocytes) Negative Nitrite (test code = Nitrite) negative Urobilinogen (test code = .2 Urobilinogen) Protein (test code = Protein) Negative pH (test code = pH) 6.0 Blood (test code = Blood) Negative Specific [place] (test code = 1.025 Specific Kensal) Ketone (test code = Ketone) Negative Bilirubin (test code = Bilirubin) Negative Glucose (test code = Glucose) Negative Appearance (test code = Appearance) Clear Color (test code = Color) Yellow [facility]lamydia [facility]omat[facility]+Neisseria gonorrhoeae DNA [Presence] in Cervix by Probe and target amplification [id number] 02:07:00 ResultsMaNeshoba County General HospitalMicroscopic observation [Identifier] in Cervix by Cyto stain.thin [id number] 02:07:00ResultsMaNeshoba County General HospitalUrinalysis macro (dipstick) panel - [id number] 11:25:00 Test Item Value Reference Range Interpretation Comments Leukocytes (test code = Leukocytes) Negative Nitrite (test code = Nitrite) negative Urobilinogen (test code = .2 Urobilinogen) Protein (test code = Protein) Negative pH (test code = pH) 7.0 Blood (test code = Blood) Negative Specific Kensal (test code = 1.020 Specific Kensal) Ketone (test code = Ketone) Negative Bilirubin (test code = Bilirubin) Negative Glucose (test code = Glucose) Negative Appearance (test code = Appearance) Clear Color (test code = Color) Yellow [facility] HospitalUrinalysis macro (dipstick) panel - [id number] 11:25:00 Test Item Value Reference Range Interpretation Comments Leukocytes (test code = Leukocytes) Negative Nitrite (test code = Nitrite) negative Urobilinogen (test code = .2 Urobilinogen) Protein (test code = Protein) Negative pH (test code = pH) 7.0 Blood (test code = Blood) Negative Specific Kensal (test code = 1.020 Specific Kensal) Ketone (test code = Ketone) Negative Bilirubin (test code = Bilirubin) Negative Glucose (test code = Glucose) Negative Appearance (test code = Appearance) Clear Color (test code = Color) Yellow [facility] W Auto Differential panel - [id number] 09:50:00 Test Item Value Reference Range Interpretation Comments white blood count (test code = 8.3 K/uL 4.0-11.5 white blood count) red blood count (test code = red 4.40 M/uL 3.80-5.20 blood count) hemoglobin (test code = 11.4 g/dL 10.5-15.7 hemoglobin) hematocrit (test code = 36.7 % 34.0-50.0 hematocrit) Erythrocyte mean corpuscular 83.4 fL 86-100 L volume [Entitic volume] (test code = 25285-8) mean corpuscular hemoglobin (test 25.9 pg 26.2-33.4 L code = mean corpuscular hemoglobin) mean corpuscular HGB conc (test 31.1 g/dL 30-34 code = mean corpuscular HGB conc) red cell distribution width (test 13.5 % 12.0-15.5 code = red cell distribution width) platelet count (test code = 248 K/uL 165-450 platelet count) mean platelet volume (test code = 11.7 fL 9.4-12.6 mean platelet volume) Neutrophils.segmented/100 72.4 % 44.4-80.1 leukocytes in Blood (test code = 79342-2) Ig% (test code = Ig%) 0.6 % 0.0-0.4 H lymphocyte% (test code = 19.6 % 10.0-50.0 lymphocyte%) mono % (test code = mono %) 4.7 % 3.6-12.0 eos % (test code = eos %) 2.5 % 0.0-5.4 Basophils/100 leukocytes in 0.2 % 0.1-1.2 Unspecified specimen (test code = 78808-3) absolute neutrophil count (test 5.96 K/uL 1.56-6.13 code = absolute neutrophil count) Ig# (test code = Ig#) 0.1 K/uL 0.0-0.03 H Lymphocytes [#/volume] in 1.6 K/uL 1.18-3.74 Unspecified specimen by Automated count (test code = 05537-9) mono # (test code = mono #) 0.39 K/uL 0.24-0.86 eos # (test code = eos #) 0.21 K/uL 0.04-0.36 basophil # (test code = basophil 0.02 K/uL 0.01-0.08 #) NRBC% (test code = NRBC%) 0 /100 WBC 0-0.2 NRBC# (test code = NRBC#) 0 K/uL [facility] HospitalReagin Ab [Presence] in Serum by [id number] 09:50:00 Test Item Value Reference Range Interpretation Comments Reagin Ab [Presence] in Serum by nonreactive nonreactive RPR (test code = 92052-3) [facility] W Auto Differential panel - [id number] 00:00:00 Test Item Value Reference Range Interpretation Comments white blood count (test code = 8.3 K/uL 4.0-11.5 white blood count) red blood count (test code = red 4.40 M/uL 3.80-5.20 blood count) hemoglobin (test code = 11.4 g/dL 10.5-15.7 hemoglobin) hematocrit (test code = 36.7 % 34.0-50.0 hematocrit) Erythrocyte mean corpuscular 83.4 fL 86-100 L volume [Entitic volume] (test code = 07485-0) mean corpuscular hemoglobin (test 25.9 pg 26.2-33.4 L code = mean corpuscular hemoglobin) mean corpuscular HGB conc (test 31.1 g/dL 30-34 code = mean corpuscular HGB conc) red cell distribution width (test 13.5 % 12.0-15.5 code = red cell distribution width) platelet count (test code = 248 K/uL 165-450 platelet count) mean platelet volume (test code = 11.7 fL 9.4-12.6 mean platelet volume) Neutrophils.segmented/100 72.4 % 44.4-80.1 leukocytes in Blood (test code = 21809-2) Ig% (test code = Ig%) 0.6 % 0.0-0.4 H lymphocyte% (test code = 19.6 % 10.0-50.0 lymphocyte%) mono % (test code = mono %) 4.7 % 3.6-12.0 eos % (test code = eos %) 2.5 % 0.0-5.4 Basophils/100 leukocytes in 0.2 % 0.1-1.2 Unspecified specimen (test code = 37695-3) absolute neutrophil count (test 5.96 K/uL 1.56-6.13 code = absolute neutrophil count) Ig# (test code = Ig#) 0.1 K/uL 0.0-0.03 H Lymphocytes [#/volume] in 1.6 K/uL 1.18-3.74 Unspecified specimen by Automated count (test code = 30406-6) mono # (test code = mono #) 0.39 K/uL 0.24-0.86 eos # (test code = eos #) 0.21 K/uL 0.04-0.36 basophil # (test code = basophil 0.02 K/uL 0.01-0.08 #) NRBC% (test code = NRBC%) 0 /100 WBC 0-0.2 NRBC# (test code = NRBC#) 0 K/uL [facility] HospitalReagin Ab [Presence] in Serum by [id number] 00:00:00 Test Item Value Reference Range Interpretation Comments Reagin Ab [Presence] in Serum by nonreactive nonreactive RPR (test code = 56663-9) [facility] HospitalABO & Rh group [Type] in [id number] 00:00:00 Test Item Value Reference Range Interpretation Comments Rh [Type] in Blood (test code = 4+ 26736-0) ABO and Rh group panel - Blood A positive (test code = 87413-7) [facility] HospitalBlood [facility] antibody screen [Presence] in Serum or Plasma 2019-04-26 00:00:00 Test Item Value Reference Range Interpretation Comments Blood group antibody screen negative [Presence] in Serum or Plasma (test code = 890-4) [facility] HospitalBacteria identified in Urine by [id number] 00:00:00 Test Item Value Reference Range Interpretation Comments Bacteria identified in no growth at 48 hrs. Urine by Culture (test code = 630-4) [facility] HospitalHIV 1+O+2 Ab [Presence] in Serum or [id number] 00:00:00 Test Item Value Reference Range Interpretation Comments HIV 1+2 Ab+HIV1 p24 Ag non reactive non reactive [Presence] in Serum by Immunoassay (test code = 26552-1) [facility] HospitalHepatitis B virus surface Ag [Presence] in Serum 2019-04-26 00:00:00 Test Item Value Reference Range Interpretation Comments .hepatitis B surface antigen (test negative negative code = .hepatitis B surface antigen) [facility]- [place] [id number] 22:33:00Patient Name: JULIAN BOYER Unit No: [id number] EXAMS: CPT: [id number] [place] L[place] [address] LIMITED OBSTETRICAL ULTRASOUND: HISTORY: DECREASED MOVEMENT TECHNIQUE: Transabdominal scanning with bright scale, color Doppler and spectral Doppler. FINDINGS: LMP: unknown EDC, Clinical: 07/17/2019 Fetus: Single, live, vertex presentation. Placenta: Anterior, without previa or retroplacental hemorrhage, placenta is immature. Amniotic fluid: Normal amount, KIM = 13.6 cm , between the 5th and 50th percentile for gestational age movement: Observed Heart rate: 144-155 beats per minute BIOMETRY: BPD 5.9 cm, 24 weeks 0 days HC 22.0 cm, 24 weeks 0 days AC 19.8 cm, 24 weeks 3 days FL 4.4 cm, 24 weeks 3 days EFW: 688 +/- 103 g EFW% 37.5 Gestational age (US): 24 weeks 2 days +/- 1 week 5 days EDC: 07/18/2019 Cervical Length: 3.4 cm, Endocervical canal is closed. IMPRESSION: Normal limited obstetrical ultrasound. If a full evaluation is required, a complete obstetrical ultrasound can be performed on an elective basis. at 2233 Reported and signed by: Raghavendra Bonilla MD Name: JULIAN BOYER [facility] Phys: Reuben Muhammad MD [address] [facility] : 2000 Age: 18 Sex: F [place] [address] Loc: N.ABBEY Exam Date: 03/30/2019 Status: PRE ER PH: FAX: PAGE 1 Signed Report (CONTINUED) Patient Name: SARAH BOYER Unit No: [id number] EXAMS:CPT: [id number] LTD 87439 <Continued> CC: Reuben Pinto MD Technologist: JOMAR Saldana Probe: Venessa Dt/Tm:03/30/2019 (2233) by:[email or web address] Orig Print D/T: S: 03/30/2019 (2236) BATCH NO: N/A Name: JULIAN BOYER [facility] Phys: Reuben Muhammad MD [address] [facility] : 2000 Age: 18 Sex: F [place] [address] Loc: N.ABBEY Exam Date: 03/30/2019 Status: PRE ER PH: FAX: PAGE 2 Signed ReportURINALYSIS [id number] 20:08:00 Test Item Value Reference Range Interpretation Comments UA COLOR (test code = COLU) YELLOW YELLOW UA APPEARANCE (test code = APPU) Clear CLEAR UA GLUCOSE DIPSTICK (test code = NEGATIVE NEGATIVE DGLUU) UA BILIRUBIN DIPSTICK (test code = NEGATIVE NEGATIVE BILU) UA KETONE DIPSTICK (test code = NEGATIVE NEGATIVE KETU) UA SPECIFIC GRAVITY (test code = 1.020 1.001-1.030 SGU) UA BLOOD DIPSTICK (test code = DONTRELL) NEGATIVE NEGATIVE UA PH DIPSTICK (test code = ANEL) 6.0 5.0-9.0 UA PROTEIN DIPSTICK (test code = NEGATIVE NEGATIVE PROU) UA UROBILINOGEN DIPSTICK (test code NEGATIVE <=1.0 = URO) UA NITRITE DIPSTICK (test code = NEGATIVE NEGATIVE KIMBERLY) UA ASCORBIC ACID DIPSTICK (test NEGATIVE code = AAU) UA LEUKOCYTE ESTERASE DIPSTICK NEGATIVE NEGATIVE (test code = LEUU) UA WBC (test code = WBCU) 0-5 /HPF 0-5 UA RBC (test code = RBCU) 0-5 /HPF 0-5 UA EPITHELIAL CELLS (test code = RARE /LPF NONE-FEW EPIU) UA BACTERIA (test code = BACU) None /HPF NONE SEEN UA MUCUS (test code = MUCU) 1+ /LPF NONE SEEN RAPID PLASMA [id number] 18:25:00 Test Item Value Reference Range Interpretation Comments RAPID PLASMA REAGIN (test code = NON-REACTIVE NON-REACT RPR) AG HEPATITIS B [id number] 18:25:00 Test Item Value Reference Range Interpretation Comments AG HEPATITIS B SURFACE NON REACTIVE INDEX NonReactive (test code = HBSAG) AB HEPATITIS C [id number] 18:25:00 Test Item Value Reference Range Interpretation Comments AB HEPATITIS C (test code NON REACTIVE INDEX NON REACT. = HCVAB) SIGNAL TO CUTOFF (test TEST NOT PERFORMED <0.80 code = CUTOFF) AB HIV 1 18:25:00 Test Item Value Reference Range Interpretation Comments AB HIV 1 2 (test NONREACTIVE NONREACTIVE Done by Denise Vergara code = LSF30TP) 4th Gen HIV Ag/Ab Combo Screen RAPID PLASMA [id number] 08:49:00 Test Item Value Reference Range Interpretation Comments RAPID PLASMA REAGIN (test code = NON-REACTIVE NON-REACT RPR) AG HEPATITIS B [id number] 08:49:00 Test Item Value Reference Range Interpretation Comments AG HEPATITIS B SURFACE NON REACTIVE INDEX NonReactive (test code = HBSAG) AB HEPATITIS C [id number] 08:49:00 Test Item Value Reference Range Interpretation Comments AB HEPATITIS C (test code NON REACTIVE INDEX NON REACT. = HCVAB) SIGNAL TO CUTOFF (test TEST NOT PERFORMED <0.80 code = CUTOFF) AB HIV 1 08:49:00 Test Item Value Reference Range Interpretation Comments AB HIV 1 2 (test code = HOP92WE) NONREACTIVE AG HEPATITIS B [id number] 07:58:00 Test Item Value Reference Range Interpretation Comments AG HEPATITIS B SURFACE NON REACTIVE INDEX NonReactive (test code = HBSAG) AB HEPATITIS [id number] 07:58:00 Test Item Value Reference Range Interpretation Comments AB HEPATITIS C (test code NON REACTIVE INDEX NON REACT. = HCVAB) RAPID PLASMA [id number] 07:58:00 Test Item Value Reference Range Interpretation Comments RAPID PLASMA REAGIN (test code = NON-REACTIVE NON-REACT RPR) AG HEPATITIS B [id number] 07:58:00 Test Item Value Reference Range Interpretation Comments AG HEPATITIS B SURFACE NON REACTIVE INDEX NonReactive (test code = HBSAG) AB HEPATITIS C [id number] 07:58:00 Test Item Value Reference Range Interpretation Comments AB HEPATITIS C (test code = HCVAB) INDEX NON REACT. SIGNAL TO CUTOFF (test code = CUTOFF) <0.80 AB HIV 1 07:58:00 Test Item Value Reference Range Interpretation Comments AB HIV 1 2 (test code = NSI43QQ) NONREACTIVE RAPID PLASMA [id number] 00:17:00 Test Item Value Reference Range Interpretation Comments RAPID PLASMA REAGIN (test code = NON-REACTIVE NON-REACT RPR) AG HEPATITIS B [id number] 00:17:00 Test Item Value Reference Range Interpretation Comments AG HEPATITIS B SURFACE (test code = NONREACTIVE HBSAG) AB HEPATITIS C [id number] 00:17:00 Test Item Value Reference Range Interpretation Comments AB HEPATITIS C (test code = HCVAB) NONREACTIVE SIGNAL TO CUTOFF (test code = CUTOFF) <0.80 DRUGS OF ABUSE [id number] 21:11:00 Test Item Value Reference Range Interpretation Comments UR COCAINE (test code = NEGATIVE NEGATIVE DETE CTION CUT OFF: COCAU) 150 ng/mL UR CANNABINOIDS (test NEGATIVE NEGATIVE DETECT ION CUT OFF: code = CANU) 50 ng/mL UR AMPHETAMINE (test code NEGATIVE NEGATIVE DE TECTION CUT OFF: = AMPHU) 500 ng/mL UR BARBITURATE QUAL (test NEGATIVE NEGATIVE DE TECTION CUT OFF: code = BARBQLU) 200 ng/mL UR BENZODIAZEPINE (test NEGATIVE NEGATIVE DETE CTION CUT OFF: code = BENZU) 150 ng/mL UR OPIATES QUAL (test NEGATIVE NEGATIVE DETECT ION CUT OFF: code = OPIAQLU) 100 ng/mL UR PHENCYCLIDINE (PCP) NEGATIVE NEGATIVE DETEC TION CUT OFF: (test code = PHENCU) 25 ng/m L URINALYSIS [id number] 21:08:00 Test Item Value Reference Range Interpretation Comments UA COLOR (test code = COLU) YELLOW YELLOW UA APPEARANCE (test code = Slightly-Cloudy CLEAR APPU) UA GLUCOSE DIPSTICK (test NEGATIVE NEG code = DGLUU) UA BILIRUBIN DIPSTICK (test NEGATIVE NEG code = BILU) UA KETONE DIPSTICK (test code TRACE NEG A = KETU) UA SPECIFIC GRAVITY (test 1.026 1.001-1.035 N code = SGU) UA BLOOD DIPSTICK (test code NEG NEG = DONTRELL) UA PH DIPSTICK (test code = 6.0 5-9 ANEL) UA PROTEIN DIPSTICK (test NEGATIVE NEG code = PROU) UA UROBILINIOGEN DIPSTICK NEGATIVE mg/dL NEG (test code = URO) UA NITRITE DIPSTICK (test POSITIVE NEG A code = KIMBERLY) UA LEUKOCYTE ESTERASE TRACE NEG A DIPSTICK (test code = LEUU) UA WBC (test code = WBCU) 2-5 #/hpf NONE SEEN A UA RBC (test code = RBCU) 0-2 #/hpf NONE SEEN UA EPITHELIAL CELLS (test RARE #/HPF RARE-FEW code = EPIU) UA BACTERIA (test code = RARE /HPF RARE-FEW BACU) UA MUCUS (test code = MUCU) 1+ NONE SEEN C REACTIVE [id number] 19:33:00 Test Item Value Reference Range Interpretation Comments C REACTIVE PROTEIN (test code = <0.2 mg/dL 0.6-1.2 L CRP) - US PREG UT [id number] 19:22:00 Patient Name: JULIAN BOYER Unit No: [id number] EXAMS: CPT CODE: [id number] US PREG UT TRANSVAGINAL [address] [facility] [address] [place], [place] [address] LIMITED OBSTETRICAL ULTRASOUND REPORT Pat. Name: JULIAN BOYER Pat. No: [id number] Study Date: 03/24/2019 6:45pm , Age: 2 2000, 18 Pregnancies: 2, Para 0, Ab 0 LMP: Unknown GA by 1st: 24w2d GA Selected: 24w2d (From Known E) KADEN: 07/12/2019 Referring MD: Finesse Gan Director Of Global Sales: Pam Cabello RDMS, RVT CPT4: USPRUTTRVG Hist/Ind: CERVICAL LENGTH SCAN 2 --------- Cervical Length: 2.6 cm HeartRate: 143 bpm MATERNAL ANATOMY Ovaries LxHxW (cm) Right 4.3 x 2.1 x 3.7 Vol: 17.5cc Left 2.6 x 2.0 x 2.3 Vol: 6.3cc CLINICAL SUMMARY Type of Gestation: Carney Intrauterine in vertex presentation. motion and organs seen: heart motion seen body and limb movements seen Placental location: Anterior Placental maturity : Grade 1 There is no evidence of placenta previa. Amniotic fluid volume is normal. Uterus and adnexa: SHORTER THAN EXPECTED CERVIX. Cervix length = 2.6 CM (TRANSVAGINAL MEASUREMENT). Thank you for allowing us to participate in the care of this patient. Grace Salas M.D. Electronic Signature 03/24/2019 07:22pm at 1922 Reported and signed by: Grace Salas MD [facility] NAME: JULIAN BOYER Radiology DepartmentPHYS: Finesse Elizabeth [address] : 2000 AGE: 18 SEX: F [place], [place] [address] LOC: Arnold3058 A PHONE #: [phone] EXAM DATE: 03/24/2019 STATUS: DIS IN FAX #: [phone] RAD NO: Page 1 Signed Report (CONTINUED) Patient Name: JULIAN BOYER Unit No: [id number] EXAMS: CPT CODE: [id number] [facility] TRANSVAGINAL [address] <Continued> CC: Finesse Gan MD Technologist: Pam Cabello RDMS, RVT Probe: [id number] Trnscrbd D/ (192) [facility] [place] Print D/T: S: 03/31/2019 (1301) [facility] NAME: ROSALINDJULIAN Radiology Department PHYS: SUKHDEEP. Finesse Gan [address] : 2000 AGE: 18SEX: F [place] [address] LOC: F.3058 A PHONE #: [phone] EXAM DATE: 03/24/2019 STATUS: DIS IN FAX #: [phone] RAD NO: Page 2 Signed Report Patient Name: JULIAN BOYER Unit No: [id number] EXAMS: CPT CODE: [id number] US PREG UT TRANSVAGINAL [address] <Continued> [facility] Radiology Department PHYS: SUKHDEEP. Finesse Gan [address] : 2000 AGE: 18 SEX: F [place] [address] LOC: F.3058 A PHONE #: [phone] EXAM DATE: 03/24/2019 STATUS: DIS IN FAX #: [phone] RAD NO: Page 3 Signed Report- US [id number] 19:22:00 Patient Name: JULIAN BOYER Unit No: [id number] EXAMS: CPT CODE: [id number] [place] L[place] [address] [facility] [address] [place], [place] [address] LIMITED OBSTETRICAL ULTRASOUND REPORT Pat. Name: JULIAN BOYER Pat. No: [id number] Study Date: 03/24/2019 6:45pm , Age: 2 2000, 18 Pregnancies: 2, Para 0, Ab 0 LMP: Unknown GA by 1st: 24w2d GA Selected: 24w2d (From Known E) KADEN: 07/12/2019 Referring MD: FINESSE GAN Director Of Global Sales: Pam Cabello RDMS, RVT CPT4: USPREGLTD Hist/Ind: CERVICAL LENGTH SCAN 2 Cervical Length: 2.6 cm Heart Rate: 143 bpm MATERNAL ANATOMY Ovaries LxHxW (cm) Right 4.3 x 2.1 x 3.7 Vol: 17.5cc Left 2.6 x 2.0 x 2.3 Vol: 6.3cc CLINICAL SUMMARY Type of Gestation: Carney Intrauterine in vertex presentation. motion and organs seen: heart motion seen body and limb movements seen Placental location: Anterior Placental maturity : Grade 1 There is no evidence of placenta previa. Amniotic fluid volume is normal. Uterus and adnexa: SHORTER THAN EXPECTED CERVIX. Cervix length = 2.6 CM (TRANSVAGINAL MEASUREMENT). Thank you for allowing us to participate in the care of this patient. Grace Salas M.D. Electronic Signature 03/24/2019 07:22pm at 1922 Reported and signed by: Grace Salas MD [facility] NAME: ROSALINDJULINA Radiology Department PHYS: DARIA. - iFnesse Gan [address] : 2000 AGE: 18 SEX: F [place] [address] LOC: Georgette.ABBEY PHONE #: [phone] EXAM DATE: 03/24/2019 STATUS: REG ER FAX #: [phone] RAD NO: Page 1 Signed Report (CONTINUED) Patient Name: JULIAN BOYER Unit No: [id number] EXAMS: CPT CODE: [id number] [facility] [address] &l t;Continued> CC: Finesse Gan MD Technologist: Pam Cabello RDMS, RVT Probe: Trnscrbd D/ (1921) Eleni Orig Print D/T: S: 03/24/2019 (1921) [facility] PHYS: R AMBER. - Finesse Gan [address] : 2000 AGE: 18 SEX: F [place] [address] LOC: ArnoldABBEY PHONE #: [phone] EXAM DATE: 03/24/2019 STATUS: REG ER FAX #: [phone] RAD NO: Page 2 Signed Report Patient Name: JULIAN BOYER Unit No: [id number] EXAMS: CPT CODE: [id number] [place] LTD [address] <Continued> [facility] NAME: JULIAN BOYER Radiology Department PHYS: Finesse Elizabeth [address] : 2000 AGE: 18 SEX: F [place], [place] [address] LOC: ArnoldABBEY PHONE #: [phone] EXAM DATE: 03/24/2019 STATUS: REG ER FAX #: [phone] RAD NO: Page 3 Signed ReportCOMPREHENSIVE METABOLIC [id number] 19:21:00 Test Item Value Reference Range Interpretation Comments SODIUM (test code = NA) 138 mEq/L 135-145 N POTASSIUM (test code = K) 3.5 mEq/L 3.5-5.0 N CHLORIDE (test code = CL) 103 mEq/L 100-115 N CARBON DIOXIDE (test code = CO2) 23 mEq/L 22-31 N ANION GAP (test code = GAP) 15.10 10-20 N GLUCOSE (test code = GLU) 87 mg/dL 65-110 N BLOOD UREA NITROGEN (test code = 11 mg/dL 7-18 N BUN) GLOMERULAR FILTRATION RATE (test 108 ml/min >60 N code = GFR) CREATININE (test code = CREAT) 0.7 mg/dL 0.5-1.0 N TOTAL PROTEIN (test code = PROT) 6.7 gm/dL 6.3-8.2 N ALBUMIN (test code = ALB) 3.2 gm/dL 3.4-4.8 L CALCIUM (test code = CA) 8.6 mg/dL 8.4-10.2 N BILIRUBIN TOTAL (test code = BILT) 0.3 mg/dL 0.2-1.0 N SGOT/AST (test code = AST) 17 units/L 15-37 N SGPT/ALT (test code = ALT) 23 units/L 12-78 N ALKALINE PHOSPHATASE TOTAL (test 69 units/L 46-116 N code = ALKP) COMPREHENSIVE DRUG [id number] 19:21:00 Test Item Value Reference Range Interpretation Comments DRUG TOXICOLOGY (test code = DRUG) CBC W/AUTO [id number] 19:15:00 Test Item Value Reference Range Interpretation Comments WHITE BLOOD CELL (test code = WBC) 9.7 K/mm3 6.6-12.1 N RED BLOOD CELL (test code = RBC) 3.73 M/mm3 3.45-5.01 N HEMOGLOBIN (test code = HGB) 10.5 g/dL 10.7-13.9 L HEMATOCRIT (test code = HCT) 30.8 % 32.1-42.1 L MEAN CELL VOLUME (test code = MCV) 83 fL 84.1-94.8 L MEAN CELL HGB (test code = MCH) 28.2 pg 27-35 N MEAN CELL HGB CONCETRATION (test 34.1 gm/dL 32.2-34.1 N code = MCHC) RED CELL DISTRIBUTION WIDTH (test 14.3 % 12.4-16.5 N code = RDW) PLATELET COUNT (test code = PLT) 234 K/mm3 133-385 N IMMATURE PLATELET FRACTION (test 0.0 % 0.0-10.8 N code = IPF) MEAN PLATELET VOLUME (test code = 11.7 fl 9.1-12.7 N MPV) NEUTROPHIL % (test code = NT%) 62.8 % 56.5-79.4 N LYMPHOCYTE % (test code = LY%) 29.5 % 14.3-34.3 N MONOCYTE % (test code = MO%) 5.6 % 5.1-10.4 N EOSINOPHIL % (test code = EO%) 1.3 % 0.1-3.0 N BASOPHIL % (test code = BA%) 0.3 % 0.1-1.0 N NEUTROPHIL # (test code = NT#) 6.1 K/mm3 LYMPHOCYTE # (test code = LY#) 2.9 K/mm3 MONOCYTE # (test code = MO#) 0.5 K/mm3 EOSINOPHIL # (test code = EO#) 0.13 K/mm3 BASOPHIL # (test code = BA#) 0.0 K/mm3 RBC MORPHOLOGY REQUIRED (test code NORMAL NORMAL = RBCM) PLATELET MORPHOLOGY REQUIRED (test NORMAL NORMAL code = PLTMR) COMPREHENSIVE METABOLIC [id number] 12:02:00 Test Item Value Reference Range Interpretation Comments SODIUM (test code = NA) 136 mEq/L 135-145 N POTASSIUM (test code = K) 3.6 mEq/L 3.5-5.0 N CHLORIDE (test code = CL) 103 mEq/L 100-115 N CARBON DIOXIDE (test code = CO2) 27 mEq/L 22-31 N ANION GAP (test code = GAP) 9.70 10-20 L GLUCOSE (test code = GLU) 82 mg/dL 65-110 N BLOOD UREA NITROGEN (test code = 10 mg/dL 7-18 N BUN) GLOMERULAR FILTRATION RATE (test 129 ml/min >60 N code = GFR) CREATININE (test code = CREAT) 0.6 mg/dL 0.5-1.0 N TOTAL PROTEIN (test code = PROT) 6.4 gm/dL 6.3-8.2 N ALBUMIN (test code = ALB) 2.9 gm/dL 3.4-4.8 L CALCIUM (test code = CA) 8.7 mg/dL 8.4-10.2 N BILIRUBIN TOTAL (test code = BILT) 0.5 mg/dL 0.2-1.0 N SGOT/AST (test code = AST) 16 units/L 15-37 N SGPT/ALT (test code = ALT) 23 units/L 12-78 N ALKALINE PHOSPHATASE TOTAL (test 53 units/L 46-116 N code = ALKP) [id number] 12:02:00 Test Item Value Reference Range Interpretation Comments LIPASE (test code = LIP) 127 units/L 73-393 N UA RFLX MICR CULT IF [id number] 11:53:00 Test Item Value Reference Range Interpretation Comments UA COLOR (test code = COLU) YELLOW YELLOW UA APPEARANCE (test code = Slightly-Cloudy CLEAR APPU) UA GLUCOSE DIPSTICK (test NEGATIVE NEG code = DGLUU) UA BILIRUBIN DIPSTICK (test NEGATIVE NEG code = BILU) UA KETONE DIPSTICK (test code NEGATIVE NEG = KETU) UA SPECIFIC GRAVITY (test 1.021 1.001-1.035 N code = SGU) UA BLOOD DIPSTICK (test code NEG NEG = DONTRELL) UA PH DIPSTICK (test code = 7.0 5-9 ANEL) UA PROTEIN DIPSTICK (test NEGATIVE NEG code = PROU) UA UROBILINIOGEN DIPSTICK NEGATIVE mg/dL NEG (test code = URO) UA NITRITE DIPSTICK (test NEG NEG code = KIMBERLY) UA LEUKOCYTE ESTERASE 2+ NEG A DIPSTICK (test code = LEUU) UA WBC (test code = WBCU) 6-10 #/hpf NONE SEEN A UA RBC (test code = RBCU) 0-2 #/hpf NONE SEEN UA EPITHELIAL CELLS (test MANY #/HPF RARE-FEW A code = EPIU) UA BACTERIA (test code = RARE /HPF RARE-FEW BACU) UA MUCUS (test code = MUCU) RARE NONE SEEN CBC W/AUTO [id number] 11:49:00 Test Item Value Reference Range Interpretation Comments WHITE BLOOD CELL (test code = WBC) 7.1 K/mm3 6.6-12.1 N RED BLOOD CELL (test code = RBC) 3.87 M/mm3 3.45-5.01 N HEMOGLOBIN (test code = HGB) 10.6 g/dL 10.7-13.9 L HEMATOCRIT (test code = HCT) 32.3 % 32.1-42.1 N MEAN CELL VOLUME (test code = MCV) 84 fL 84.1-94.8 L MEAN CELL HGB (test code = MCH) 27.4 pg 27-35 N MEAN CELL HGB CONCETRATION (test 32.8 gm/dL 32.2-34.1 N code = MCHC) RED CELL DISTRIBUTION WIDTH (test 15.1 % 12.4-16.5 N code = RDW) PLATELET COUNT (test code = PLT) 198 K/mm3 133-385 N IMMATURE PLATELET FRACTION (test 0.0 % 0.0-10.8 N code = IPF) MEAN PLATELET VOLUME (test code = 11.7 fl 9.1-12.7 N MPV) NEUTROPHIL % (test code = NT%) 69.4 % 56.5-79.4 N LYMPHOCYTE % (test code = LY%) 22.1 % 14.3-34.3 N MONOCYTE % (test code = MO%) 6.9 % 5.1-10.4 N EOSINOPHIL % (test code = EO%) 0.8 % 0.1-3.0 N BASOPHIL % (test code = BA%) 0.4 % 0.1-1.0 N NEUTROPHIL # (test code = NT#) 4.9 K/mm3 LYMPHOCYTE # (test code = LY#) 1.6 K/mm3 MONOCYTE # (test code = MO#) 0.5 K/mm3 EOSINOPHIL # (test code = EO#) 0.06 K/mm3 BASOPHIL # (test code = BA#) 0.0 K/mm3 RBC MORPHOLOGY REQUIRED (test code NORMAL NORMAL = RBCM) PLATELET MORPHOLOGY REQUIRED (test NORMAL NORMAL code = PLTMR) - US [id number] 15:11:00 Patient Name: JULIAN BOYER Unit No: [id number] EXAMS: CPT CODE: [id number] [place] L[place] [address] [facility] [address] [place], [place] [address] LIMITED OBSTETRICAL ULTRASOUND REPORT Pat. Name: JULIAN BOYER Pat. No: [id number] Study Date: 02/16/2019 2:41pm , Age: 2 2000, 18 Pregnancies: 1, Para 0, Ab 0 LMP: Unknown GA Selected: 19w1d (From Known E) KADEN: 07/12/2019 Referring MD: FLACA BOCANEGRA Director Of Global Sales: Clarisa Dyson RDMS CPT4: USPREGLTD Hist/Ind: POST FALL SCAN 1 Cervical Length: 3.7 cm Heart Rate: 143 bpm MATERNAL ANATOMY Ovaries LxHxW (cm) Right 2.1 x 1.3 x 1.3 Vol: 1.9cc Left 3.1 x 1.8 x 2.8 Vol: 8.2cc CLINICAL SUMMARY Type of Gestation: Carney Intrauterine in variable presentation. motion and organs seen: heart motion seen somatic activity observed body and limb movements seen Regular cardiac rhythm observed Placental location: Anterior Placental maturity : Grade 1 There is no evidence of placenta previa. Amniotic fluid volume is normal. Uterus and adnexa: There is no sonographic evidence of abruption. RECOMMEND FULL ANATOMIC SURVEY IF NOT PREVIOUSLY PERFORMED. Thank you for allowing us to participate in the care of this patient. Aldair Trujillo M.D. Electronic Signature 02/16/2019 03:11pm [facility] NAME: JULIAN BOYER RadiologyDepartment PHYS: Flaca Russell [address]DOB: 2000 AGE: 18 SEX: [place] [address] LOC:JAMES PHONE #: [phone] EXAM DATE: 02/16/2019 STATUS: REG ER FAX #: [phone] RAD NO: Page 1 Signed Report (CONTINUED) Patient Name: JULIAN BOYER Unit No: [id number] EXAMS: CPT CODE: [id number] [place] L[place] [address]995 <Continued> at 1511 Reported and signed by: Kerline Trujillo MD CC: Flaca Bocanegra MD Technologist: Clarisa Dyson RDMS Probe: Trnscrbd D/ (151) [email or web address] Orig Print D/T: S: 02/16/2019 (1510) [facility] NAME: JULIAN BOYER Radiology Department PHYS: [facility] Bocanegra,Flaca [address] : 2000 AGE: 18 SEX: F [place] [address] LOC: ArnoldERS PHONE #: [phone] EXAM DATE: 02/16/2019 STATUS: REG ER FAX #: [phone] RAD NO: Page 2 Signed Report Patient Name: JULIAN BOYER Unit No: [id number] EXAMS: CPT CODE: [id number] [place] L[place] [address] <Continued> [facility] NAME: JULIAN BOYER Radiology Department PHYS: [place] - Flaca Bocanegra [address] : 2000 AGE: 18 SEX: F [place] [address] LOC: ArnoldERS PHONE #: [phone] EXAM DATE: 02/16/2019 STATUS: REG ER FAX #: [phone] RAD NO: Page 3 Signed ReportCHEMISTRY 7 [id number] 14:26:00 Test Item Value Reference Range Interpretation Comments SODIUM (test code = NA) 135 mEq/L 135-145 N POTASSIUM (test code = K) 3.8 mEq/L 3.5-5.0 N CHLORIDE (test code = CL) 104 mEq/L 100-115 N CARBON DIOXIDE (test code = CO2) 21 mEq/L 22-31 L ANION GAP (test code = GAP) 13.80 10-20 N GLUCOSE (test code = GLU) 86 mg/dL 65-110 N BLOOD UREA NITROGEN (test code = 12 mg/dL 7-18 N BUN) GLOMERULAR FILTRATION RATE (test 108 ml/min >60 N code = GFR) CREATININE (test code = CREAT) 0.7 mg/dL 0.5-1.0 N CALCIUM (test code = CA) 8.7 mg/dL 8.4-10.2 N UA RFLX MICR CULT IF [id number] 14:25:00 Test Item Value Reference Range Interpretation Comments UA COLOR (test code = COLU) YELLOW YELLOW UA APPEARANCE (test code = Slightly-Cloudy CLEAR APPU) UA GLUCOSE DIPSTICK (test NEGATIVE NEG code = DGLUU) UA BILIRUBIN DIPSTICK (test NEGATIVE NEG code = BILU) UA KETONE DIPSTICK (test code TRACE NEG A = KETU) UA SPECIFIC GRAVITY (test 1.025 1.001-1.035 N code = SGU) UA BLOOD DIPSTICK (test code NEG NEG = DONTRELL) UA PH DIPSTICK (test code = 5.0 5-9 ANEL) UA PROTEIN DIPSTICK (test NEGATIVE NEG code = PROU) UA UROBILINIOGEN DIPSTICK NEGATIVE mg/dL NEG (test code = URO) UA NITRITE DIPSTICK (test POSITIVE NEG A code = KIMBERLY) UA LEUKOCYTE ESTERASE TRACE NEG A DIPSTICK (test code = LEUU) UA WBC (test code = WBCU) 6-10 #/hpf NONE SEEN A UA RBC (test code = RBCU) 0-2 #/hpf NONE SEEN UA EPITHELIAL CELLS (test RARE #/HPF RARE-FEW code = EPIU) UA BACTERIA (test code = MODERATE /HPF RARE-FEW A BACU) UA SQUAMOUS CELLS (test code RARE #/hpf NONE SEEN = SQU) UA MUCUS (test code = MUCU) 2+ NONE SEEN UR HCG [id number] 14:25:00 Test Item Value Reference Range Interpretation Comments UR HCG QUAL (test code = HCGQLU) POSITIVE UA RFLX MICR CULT IF [id number] 14:18:00 Test Item Value Reference Range Interpretation Comments UA COLOR (test code = COLU) YELLOW YELLOW UA APPEARANCE (test code = Slightly-Cloudy CLEAR APPU) UA GLUCOSE DIPSTICK (test NEGATIVE NEG code = DGLUU) UA BILIRUBIN DIPSTICK (test NEGATIVE NEG code = BILU) UA KETONE DIPSTICK (test code TRACE NEG A = KETU) UA SPECIFIC GRAVITY (test 1.025 1.001-1.035 N code = SGU) UA BLOOD DIPSTICK (test code NEG NEG = DONTRELL) UA PH DIPSTICK (test code = 5.0 5-9 ANEL) UA PROTEIN DIPSTICK (test NEGATIVE NEG code = PROU) UA UROBILINIOGEN DIPSTICK NEGATIVE mg/dL NEG (test code = URO) UA NITRITE DIPSTICK (test POSITIVE NEG A code = KIMBERLY) UA LEUKOCYTE ESTERASE TRACE NEG A DIPSTICK (test code = LEUU) UA WBC (test code = WBCU) 6-10 #/hpf NONE SEEN A UA RBC (test code = RBCU) 0-2 #/hpf NONE SEEN UA EPITHELIAL CELLS (test RARE #/HPF RARE-FEW code = EPIU) UA BACTERIA (test code = MODERATE /HPF RARE-FEW A BACU) UA MUCUS (test code = MUCU) 2+ NONE SEEN UR HCG [id number] 14:18:00 Test Item Value Reference Range Interpretation Comments UR HCG QUAL (test code = HCGQLU) CBC W/AUTO [id number] 14:14:00 Test Item Value Reference Range Interpretation Comments WHITE BLOOD CELL (test code = WBC) 8.2 K/mm3 6.6-12.1 N RED BLOOD CELL (test code = RBC) 4.55 M/mm3 3.45-5.01 N HEMOGLOBIN (test code = HGB) 12.6 g/dL 10.7-13.9 N HEMATOCRIT (test code = HCT) 38.5 % 32.1-42.1 N MEAN CELL VOLUME (test code = MCV) 85 fL 84.1-94.8 N MEAN CELL HGB (test code = MCH) 27.7 pg 27-35 N MEAN CELL HGB CONCETRATION (test 32.7 gm/dL 32.2-34.1 N code = MCHC) RED CELL DISTRIBUTION WIDTH (test 15.6 % 12.4-16.5 N code = RDW) PLATELET COUNT (test code = PLT) 230 K/mm3 133-385 N IMMATURE PLATELET FRACTION (test 0.0 % 0.0-10.8 N code = IPF) MEAN PLATELET VOLUME (test code = 11.4 fl 9.1-12.7 N MPV) NEUTROPHIL % (test code = NT%) 79.9 % 56.5-79.4 H LYMPHOCYTE % (test code = LY%) 11.6 % 14.3-34.3 L MONOCYTE % (test code = MO%) 6.7 % 5.1-10.4 N EOSINOPHIL % (test code = EO%) 1.1 % 0.1-3.0 N BASOPHIL % (test code = BA%) 0.5 % 0.1-1.0 N NEUTROPHIL # (test code = NT#) 6.5 K/mm3 LYMPHOCYTE # (test code = LY#) 1.0 K/mm3 MONOCYTE # (test code = MO#) 0.6 K/mm3 EOSINOPHIL # (test code = EO#) 0.09 K/mm3 BASOPHIL # (test code = BA#) 0.0 K/mm3 RBC MORPHOLOGY REQUIRED (test code NORMAL NORMAL = RBCM) PLATELET MORPHOLOGY REQUIRED (test NORMAL NORMAL code = PLTMR) URINALYSIS [id number] 14:17:00 Test Item Value Reference Range Interpretation Comments UA COLOR (test code = YELLOW DESCRIPT YELLOW COLU) UA APPEARANCE (test code CLEAR DESCRIPT CLEAR = APPU) UA GLUCOSE DIPSTICK (test NEGATIVE (0) mg/dL (NEG) 0 code = DGLUU) UA BILIRUBIN DIPSTICK NEGATIVE (0) mg/dL (NEG) 0 (test code = BILU) UA KETONE DIPSTICK (test TRACE mg/dL (NEG) 0 code = KETU) UA SPECIFIC GRAVITY (test 1.021 SG 1.001-1.035 code = SGU) UA BLOOD DIPSTICK (test NEGATIVE (0) mg/DL (NEG) 0 code = DONTRELL) UA PH DIPSTICK (test code 5.0 pH UNITS 4.6-8.0 = ANEL) UA PROTEIN DIPSTICK (test NEGATIVE (0) mg/dL <30 (1+) code = PROU) UA UROBILINIOGEN DIPSTICK NORMAL (0) mg/Dl <2.0 (1+) (test code = URO) UA NITRITE DIPSTICK (test NEGATIVE (0) SCREEN NEG code = KIMBERLY) UA LEUKOCYTE ESTERASE NEGATIVE (0) (NEG) 0 DIPSTICK (test code = Leuk/mcL LEUU) UA WBC (test code = WBCU) 3-5 #WBC/HPF 0-3 UA RBC (test code = RBCU) NONE #RBC/HPF 0-3 UA SQUAMOUS CELLS (test RARE >0 /HPF NONE-SQepi code = SQU) UA MUCUS (test code = RARE /LPF NONE MUCU) BASIC METABOLIC [id number] 13:28:00 Test Item Value Reference Range Interpretation Comments SODIUM (test code = 138.0 mmol/L 133-144 N NA) POTASSIUM (test code 3.8 mmol/L 3.5-5.1 N = K) CHLORIDE (test code 107 mmol/L 95-105 H = CL) CARBON DIOXIDE (test 23 mmol/L 21-32 N code = CO2) ANION GAP (test code 8.0 GAP calc 4.0-15.0 N = GAP) GLUCOSE (test code = 79 MG/DL 70-110 N GLU) BLOOD UREA NITROGEN 13 MG/DL 7-18 N (test code = BUN) CREATININE (test 0.62 MG/DL 0.55-1.30 N Results may be code = CREAT) depressed if patient is takingN-Acetylc yste ine (NAC) and Metamizole (Dipyrone). CALCIUM (test code = 8.6 MG/DL 8.5-10.1 N CA) INDEX HEMOLYSIS 1 NORMAL <10 MG 1 NORMAL (test code = Index/DL HEMINDEX) INDEX ICTERIC (test 1 NORMAL <2 MG 1 NORMAL code = ICTINDEX) Index/DL INDEX LIPEMIA (test 1 NORMAL <50 MG 1 NORMAL code = LIPINDEX) Index/DL HCG [id number] 13:28:00 Test Item Value Reference Range Interpretation Comments HCG SERUM (test 17364 mi-IU/ML 0-3 H HCG R ANGES DURING code = HCG) NORMAL PREGNANC YPOST LMP 3-4 WEEKS 9 - 130 M IU/ML4-5 WEEKS 75 - 2,600 MIU/ML 5-6 WEEKS 85 0 - 20,800 MIU/M L6-7 WEEKS 4,00 0 - 100,200 MIU/ ML7-12 WEEKS 11,50 0 - 289,000 MIU/ ML12-16 WEEKS 18,30 0 - 137,000 MIU/ ML16-29 WEEKS 1,40 0 - 53,000 MIU/M L 29-41 WEEKS 94 0 - 60,000 MIU/M L - US PREG EVAL 1ST [id number] 13:23:00 Patient Name: JULIAN BOYER Unit No: [id number] EXAMS: CPT CODE: [id number] US PREG EVAL 1ST TRIMTR 38208 Site ID: [id number] First trimester OB ultrasound. INDICATION: Bleeding. FINDINGS: There is a normal-appearing single intrauterine . An embryo is seen with cardiac activity at 155 beats per minute. No subchorionic hemorrhage. The crown-rump length is at 12 weeks and 4 days. KADEN is 07/14/2019. Dating by LMP of 09/13/2018 is inaccurate. There is appropriate interval growth compared to previous exam of 12/27/2018. The adnexa demonstrate normal appearance of the right ovary and normal vascularity with color Doppler. The left ovary also appears normal in size and color Doppler. Noadnexal mass. IMPRESSION: Live single intrauterine . Appropriate interval growth. at 1323 Reported and signed by: Forest Coffman CC: Joe Blount NP Technologist: Telma Mahmood [facility] Trnscrbd D/ (1323) [id number] Probe: Orig Print D/T: S: 01/03/2019 (1327)Probe: WILDER Chase NAME: JULIAN BOYER [address] [place] [address] PHYS: EL.Marija - Joe Blount [place], [place] [address] : 2000 AGE: 18 SEX: F LOC: B.ERS PHONE #: [phone] EXAM DATE: 01/03/2019 STATUS: REG ER FAX #: [phone] RAD NO: Page 1 Signed ReportBASIC METABOLIC [id number] 13:12:00 Test Item Value Reference Range Interpretation Comments SODIUM (test code = 138.0 mmol/L 133-144 N NA) POTASSIUM (test code 3.8 mmol/L 3.5-5.1 N = K) CHLORIDE (test code 107 mmol/L 95-105 H = CL) CARBON DIOXIDE (test 23 mmol/L 21-32 N code = CO2) ANION GAP (test code 8.0 GAP calc 4.0-15.0 N = GAP) GLUCOSE (test code = 79 MG/DL 70-110 N GLU) BLOOD UREA NITROGEN 13 MG/DL 7-18 N (test code = BUN) CREATININE (test 0.62 MG/DL 0.55-1.30 N Results may be code = CREAT) depressed if patient is takingN-Acetylc yste ine (NAC) and Metamizole (Dipyrone). CALCIUM (test code = 8.6 MG/DL 8.5-10.1 N CA) INDEX HEMOLYSIS 1 NORMAL <10 MG 1 NORMAL (test code = Index/DL HEMINDEX) INDEX ICTERIC (test 1 NORMAL <2 MG 1 NORMAL code = ICTINDEX) Index/DL INDEX LIPEMIA (test 1 NORMAL <50 MG 1 NORMAL code = LIPINDEX) Index/DL HCG [id number] 13:12:00 Test Item Value Reference Range Interpretation Comments HCG SERUM (test code = HCG) mi-IU/ML 0-3 CBC W/AUTO [id number] 12:54:00 Test Item Value Reference Range Interpretation Comments WHITE BLOOD CELL (test code = 10.6 K/mm3 4.1-12.1 N WBC) RED BLOOD CELL (test code = RBC) 4.12 M/mm3 3.8-5.5 N HEMOGLOBIN (test code = HGB) 11.4 G/DL 10.6-15.8 N HEMATOCRIT (test code = HCT) 33.4 % 31.8-47.4 N MEAN CELL VOLUME (test code = 81.1 fL 80.1-101.1 N MCV) MEAN CELL HGB (test code = MCH) 27.7 pg 25.3-35.3 N MEAN CELL HGB CONCETRATION (test 34.1 G/DL 32.7-35.1 N code = MCHC) RED CELL DISTRIBUTION WIDTH 15.6 % 12.2-16.4 N (test code = RDW) RED CELL DISTRIBUTION WIDTH 45.8 fL 36.4-46.3 N (test code = RDW-SD) PLATELET COUNT (test code = PLT) 249 K/mm3 155-337 N MEAN PLATELET VOLUME (test code 10.8 fL 6.8-11.2 N = MPV) GRANULOCYTE % (test code = GR%) 74.7 % 37.8-82.6 N IMMATURE GRANULOCYTE % (test 0.5 % 0.0-2.0 N code = IG%) LYMPHOCYTE % (test code = LY%) 18.8 % 14.1-45.4 N MONOCYTE % (test code = MO%) 4.0 % 2.5-11.7 N EOSINOPHIL % (test code = EO%) 1.6 % 0.0-6.2 N BASOPHIL % (test code = BA%) 0.4 % 0.0-2.1 N NUCLEATED RBC % (test code = 0.0 /100WBC% 0.0-1.0 N NRBC%) GRANULOCYTE # (test code = GR#) 7.89 k/mm3 2.0-13.7 N IMMATURE GRANULOCYTE # (test 0.05 K/mm3 0.00-0.03 H code = IG#) LYMPHOCYTE # (test code = LY#) 1.98 K/mm3 0.6-3.8 N MONOCYTE # (test code = MO#) 0.42 K/mm3 0.11-0.59 N EOSINOPHIL # (test code = EO#) 0.17 K/mm3 0.0-0.4 N BASOPHIL # (test code = BA#) 0.04 K/mm3 0.0-0.1 N NUCLEATED RBC # (test code = 0.00 K/mm3 0.0-0.05 N NRBC#) HCG [id number] 20:43:00 Test Item Value Reference Range Interpretation Comments HCG SERUM (test 10969 mi-IU/ML 0-3 H HCG R ANGES DURING code = HCG) NORMAL PREGNANC YPOST LMP 3-4 WEEKS 9 - 130 M IU/ML4-5 WEEKS 75 - 2,600 MIU/ML 5-6 WEEKS 85 0 - 20,800 MIU/M L6-7 WEEKS 4,00 0 - 100,200 MIU/ ML7-12 WEEKS 11,50 0 - 289,000 MIU/ ML12-16 WEEKS 18,30 0 - 137,000 MIU/ ML16-29 WEEKS 1,40 0 - 53,000 MIU/M L 29-41 WEEKS 94 0 - 60,000 MIU/M L BASIC METABOLIC [id number] 20:23:00 Test Item Value Reference Range Interpretation Comments SODIUM (test code = 138.0 mmol/L 133-144 N NA) POTASSIUM (test code 3.5 mmol/L 3.5-5.1 N = K) CHLORIDE (test code 106 mmol/L 95-105 H = CL) CARBON DIOXIDE (test 24 mmol/L 21-32 N code = CO2) ANION GAP (test code 8.0 GAP calc 4.0-15.0 N = GAP) GLUCOSE (test code = 72 MG/DL 70-110 N GLU) BLOOD UREA NITROGEN 13 MG/DL 7-18 N (test code = BUN) CREATININE (test 0.61 MG/DL 0.55-1.30 N Results may be code = CREAT) depressed if patient is takingN-Acetylc yste ine (NAC) and Metamizole (Dipyrone). CALCIUM (test code = 8.7 MG/DL 8.5-10.1 N CA) INDEX HEMOLYSIS 1 NORMAL <10 MG 1 NORMAL (test code = Index/DL HEMINDEX) INDEX ICTERIC (test 1 NORMAL <2 MG 1 NORMAL code = ICTINDEX) Index/DL INDEX LIPEMIA (test 1 NORMAL <50 MG 1 NORMAL code = LIPINDEX) Index/DL URINALYSIS [id number] 20:23:00 Test Item Value Reference Range Interpretation Comments UA COLOR (test code = YELLOW DESCRIPT YELLOW COLU) UA APPEARANCE (test code HAZY DESCRIPT CLEAR = APPU) UA GLUCOSE DIPSTICK (test NEGATIVE (0) mg/dL (NEG) 0 code = DGLUU) UA BILIRUBIN DIPSTICK NEGATIVE (0) mg/dL (NEG) 0 (test code = BILU) UA KETONE DIPSTICK (test 1+ (5-15 mg/dL) (NEG) 0 A code = KETU) mg/dL UA SPECIFIC GRAVITY (test 1.023 SG 1.001-1.035 code = SGU) UA BLOOD DIPSTICK (test NEGATIVE (0) mg/DL (NEG) 0 code = DONTRELL) UA PH DIPSTICK (test code 6.0 pH UNITS 4.6-8.0 = ANEL) UA PROTEIN DIPSTICK (test NEGATIVE (0) mg/dL <30 (1+) code = PROU) UA UROBILINIOGEN DIPSTICK 2 mg/dL (NORM) <2.0 (test code = URO) UA NITRITE DIPSTICK (test POSITIVE SCREEN NEG A code = KIMBERLY) UA LEUKOCYTE ESTERASE 75 (1+) Leuk/mcL (NEG) 0 A DIPSTICK (test code = LEUU) UA WBC (test code = WBCU) 30-40 #WBC/HPF 0-3 A UA RBC (test code = RBCU) 0-3 #RBC/HPF 0-3 UA BACTERIA (test code = MODERATE >5 /HPF NONE-FEW A BACU) UA SQUAMOUS CELLS (test RARE >0 /HPF NONE-SQepi code = SQU) UA MUCUS (test code = RARE /LPF NONE MUCU) UA AMORPHOUS SEDIMENT RARE >0 #/mcL NONE-FEW (test code = AMORU) CBC W/MANUAL [id number] 20:15:00 Test Item Value Reference Range Interpretation Comments WHITE BLOOD CELL (test code = 10.4 K/mm3 4.1-12.1 N WBC) RED BLOOD CELL (test code = RBC) 4.12 M/mm3 3.8-5.5 N HEMOGLOBIN (test code = HGB) 11.0 G/DL 10.6-15.8 N HEMATOCRIT (test code = HCT) 33.6 % 31.8-47.4 N MEAN CELL VOLUME (test code = 81.6 fL 80.1-101.1 N MCV) MEAN CELL HGB (test code = MCH) 26.7 pg 25.3-35.3 N MEAN CELL HGB CONCETRATION (test 32.7 G/DL 32.7-35.1 N code = MCHC) RED CELL DISTRIBUTION WIDTH 15.3 % 12.2-16.4 N (test code = RDW) RED CELL DISTRIBUTION WIDTH 45.3 fL 36.4-46.3 N (test code = RDW-SD) PLATELET COUNT (test code = PLT) 264 K/mm3 155-337 N MEAN PLATELET VOLUME (test code 10.8 fL 6.8-11.2 N = MPV) GRANULOCYTE % (test code = GR%) 69.6 % 37.8-82.6 N IMMATURE GRANULOCYTE % (test 0.5 % 0.0-2.0 N code = IG%) LYMPHOCYTE % (test code = LY%) 21.8 % 14.1-45.4 N MONOCYTE % (test code = MO%) 5.6 % 2.5-11.7 N EOSINOPHIL % (test code = EO%) 2.1 % 0.0-6.2 N BASOPHIL % (test code = BA%) 0.4 % 0.0-2.1 N NUCLEATED RBC % (test code = 0.0 /100WBC% 0.0-1.0 N NRBC%) GRANULOCYTE # (test code = GR#) 7.21 k/mm3 2.0-13.7 N IMMATURE GRANULOCYTE # (test 0.05 K/mm3 0.00-0.03 H code = IG#) LYMPHOCYTE # (test code = LY#) 2.26 K/mm3 0.6-3.8 N MONOCYTE # (test code = MO#) 0.58 K/mm3 0.11-0.59 N EOSINOPHIL # (test code = EO#) 0.22 K/mm3 0.0-0.4 N BASOPHIL # (test code = BA#) 0.04 K/mm3 0.0-0.1 N NUCLEATED RBC # (test code = 0.00 K/mm3 0.0-0.05 N NRBC#) - US PREG EVAL 1ST [id number] 19:44:00 Patient Name: JULIAN BOYER Unit No: [id number] EXAMS: CPT CODE: [id number] US PREG EVAL 1ST TRIMTR 53593 HISTORY: Vaginal bleeding Location: C3 FINDINGS: Transabdominal pelvic ultrasound images are provided. A single intrauterine is demonstrated measuring 11 weeks 2 days. cardiac activity is present heart rate of 149. Small hypoechoic area seen adjacent to the gestational sac most compatible with small subchorionic hemorrhage. This area measures approximately 1.7 x 1.8 cm. IMPRESSION: 1. 11 week 2 day intrauterine with normal cardiac activity with small amount of subchorionic hemorrhage noted. at 1944 Reported and signed by: Gaurav Parr M.D. CC: Maryan Hector NP Technologist: Rachel Bedolla RDMS Trnscrbd D/ (1943) [id number] Probe: Orig Print D/T: S: 12/27/2018 (1946) Probe: WILDER Chase NAME: JULIAN BOYER [address] [place] [address] Blvd PHYS: Maryan Livingston NP [place], [place] [address] : 2000 AGE: 18 SEX: F LOC: [place] PHONE #: [phone] EXAM DATE: 12/27/2018 STATUS: PRE ER FAX #: [phone] RAD NO: Page 1 Signed Report
--- NOTE | 2021-04-13 03:55 | EDPHYS ---
Physician Documentation [facility] Name: Odette Coats Age: 20 yrs Sex: Female : 2000 Arrival Date: 04/12/2021 Time: 21:40 Bed 17 Private MD: ED Physician Antonio Morrow HPI: 04/13 03:17 This 20 yrs old Female presents to ER via Ambulatory with complaints of tere Productive Cough - [id number] , NO KNOWN ISSUES. 03:17 The patient or guardian reports. 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 - Social history:: Smoking status: Patient denies any tobacco usage or history of. ROS: 04/13 03:18 Constitutional: Negative for fever, chills, and weight loss, Eyes: Negative for injury, tere pain, redness, and discharge, Neck: Negative for injury, pain, and swelling, Cardiovascular: Negative for chest pain, palpitations, and edema, Respiratory: Negative for shortness of breath, cough, wheezing, and pleuritic chest pain, Abdomen/GI: Negative for abdominal pain, nausea, vomiting, diarrhea, and constipation, Back: Negative for injury and pain, : Negative for injury, bleeding, discharge, and swelling, MS/Extremity: Negative for injury and deformity, Skin: Negative for injury, rash, and discoloration, Neuro: Negative for headache, weakness, numbness, tingling, and seizure, Psych: Negative for depression, anxiety, suicide ideation, homicidal ideation, and hallucinations, Allergy/Immunology: Negative for hives, rash, and allergies, Endocrine: Negative for neck swelling, polydipsia, polyuria, polyphagia, and marked weight changes, Hematologic/Lymphatic: Negative for swollen nodes, abnormal bleeding, and unusual bruising. ENT: Positive for nose bleed. Exam: 03:18 Constitutional: This is a well developed, well nourished patient who is awake, alert, tere and in no acute distress. Head/Face: Normocephalic, atraumatic. Eyes: Pupils equal round and reactive to light, extra-ocular motions intact. Lids and lashes normal. Conjunctiva and sclera are non-icteric and not injected. Cornea within normal limits. Periorbital areas with no swelling, redness, or edema. Neck: Trachea midline, no thyromegaly or masses palpated, and no cervical lymphadenopathy. Supple, full range of motion without nuchal rigidity, or vertebral point tenderness. No Meningismus. Chest/axilla: Normal chest wall appearance and motion. Nontender with no deformity. No lesions are appreciated. Cardiovascular: Regular rate and rhythm with a normal S1 and S2. No gallops, murmurs, or rubs. Normal PMI, no JVD. No pulse deficits. Respiratory: Lungs have equal breath sounds bilaterally, clear to auscultation and percussion. No rales, rhonchi or wheezes noted. No increased work of breathing, no retractions or nasal flaring. Abdomen/GI: Soft, non-tender, with normal bowel sounds. No distension or tympany. No guarding or rebound. No evidence of tenderness throughout. Back: No spinal tenderness. No costovertebral tenderness. Full range of motion. Skin: Warm, dry with normal turgor. Normal color with no rashes, no lesions, and no evidence of cellulitis. MS/ Extremity: Pulses equal, no cyanosis. Neurovascular intact. Full, normal range of motion. Neuro: Awake and alert, GCS 15, oriented to person, place, time, and situation. Cranial nerves II-XII grossly intact. Motor strength 5/5 in all extremities. Sensory grossly intact. Cerebellar exam normal. Normal gait. Psych: Awake, alert, with orientation to person, place and time. Behavior, mood, and affect are within normal limits. 03:18 ENT: Nose: bleeding, is noted from both nares. Vital Signs: 04/12 22:28 BP 111 / 55; Pulse 104; Resp 16 S; Temp 98.3(O); Pulse Ox 99% on R/A; Weight 86.18 kg bb (R); Height 5 ft. 5 in. (165.10 cm) (R); Pain 0/10; 04/13 05:27 BP 99 / 55; Pulse 68; Resp 16; Pulse Ox 97% ; ds4 06:12 BP 109 / 48; Pulse 78; Resp 14 S; Temp 98(O); Pulse Ox 96% on R/A; bb 04/12 22:28 Body Mass Index 31.62 (86.18 kg, 165.10 cm) bb MDM: 02:08 Patient medically screened. tere 03:18 Differential diagnosis: spontaneous epistaxis. Data reviewed: vital signs, nurses tere notes, lab test result(s), CBC, electrolytes. Data interpreted: Pulse oximetry: on room air is 99 %. Test interpretation: by ED physician or midlevel provider: ECG, plain radiologic studies. Counseling: I had a detailed discussion with the patient and/or guardian regarding: the historical points, exam findings, and any diagnostic results supporting the discharge/admit diagnosis, lab results, radiology results, the need for outpatient follow up, for definitive care, an OB/Gyne specialist. 04/13 03:12 Order name: CBC with Diff [facility] 04/13 03:12 Order name: Comprehensive Metabolic Panel; Complete Time: 05:01 [facility] 04/13 03:12 Order name: PT-INR [facility] 04/13 03:12 Order name: Ptt, Activated [facility] 04/13 03:13 Order name: CBC with Automated Diff; Complete Time: 05:01 EDMS Administered Medications: 03:53 Drug: NS 0.9% 1000 ml Route: IV; Rate: 1 bolus; Site: right antecubital; bb 04:42 Follow up: IV Status: Completed infusion; IV Intake: 1000ml bb 04:42 Drug: Tylenol 650 mg Route: PO; bb 05:59 Follow up: Response: No adverse reaction bb Disposition Summary: 04/13/21 03:55 Discharge Ordered Location: Home tere Problem: new tere Symptoms: have improved tere Condition: Stable tere Diagnosis - Epistaxis tere - 22 weeks gestation of tere - Anemia, unspecified tere Followup: tere - With: Private Physician - When: 2 - 3 days - Reason: Recheck today's complaints, Continuance of care, Re-evaluation by your physician Followup: tere - With: - When: 2 - 3 days - Reason: Recheck today's complaints, Continuance of care, Re-evaluation by your physician Discharge Instructions: - Discharge Summary Sheet tere - Anemia tere - Nosebleed, Adult tere - Care tere - Nosebleed, Adult, [id number] tere Forms: - Medication Reconciliation Form tere - Thank You Letter tere - Antibiotic Education tere - Prescription Opioid Use tere Prescriptions: - - take 1 tablet by ORAL route once daily; 30 tablet; Refills: 0, Product tere Selection Permitted Signatures: Dispatcher [employer] Antonio Coles MD MD cha Ballard, Brenda RN RN bb Corrections: (The following items were deleted from the chart) 06:10 03:12 FHT's ordered. tere bustos
--- NOTE | 2021-04-13 03:55 | ER ---
Nurse's Notes [facility] Name: Odette Coats Age: 20 yrs Sex: Female : 2000 Arrival Date: 04/12/2021 Time: 21:40 Bed 17 Private MD: Diagnosis: Epistaxis;22 weeks gestation of ;Anemia, unspecified Presentation: 04/12 22:28 Chief complaint: Patient states: she is 22 weeks and she has been having nose bb bleeds for the last 3 days and she is coughing up blood. Coronavirus screen: At this time, the client does not indicate any symptoms associated with coronavirus-19. Ebola Screen: No symptoms or risks identified at this time. Initial Sepsis Screen: Does the patient meet any 2 criteria? No. Patient's initial sepsis screen is negative. Does the patient have a suspected source of infection? No. Patient's initial sepsis screen is negative. Risk Assessment: Do you want to hurt yourself or someone else? Patient reports no desire to harm self or others. Onset of symptoms was April 09, 2021. 22:28 Method Of Arrival: Ambulatory 22:28 Acuity: FRANCISCO 3 bb Triage Assessment: 22:31 General: Appears in no apparent distress. Behavior is calm, cooperative. Pain: Denies bb pain. EENT: Reports nose bleeds. Neuro: Level of Consciousness is awake, alert, obeys commands, Oriented to person, place, time, situation. Cardiovascular: Capillary refill < 3 seconds Patient's skin is warm and dry. Respiratory: Reports coughing up blood Onset: The symptoms/episode began/occurred 3 days, 22:33 GI: No signs and/or symptoms were reported involving the gastrointestinal system. Derm: bb Skin is pink, warm \T\ dry. Musculoskeletal: Circulation, motion, and sensation intact. 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 - Social history:: Smoking status: Patient denies any tobacco usage or history of. Screenin/01 02:15 Abuse screen: Denies threats or abuse. Nutritional screening: No deficits noted. bb Tuberculosis screening: No symptoms or risk factors identified. Fall Risk None identified. Assessment: 02:15 Reassessment: No changes from previously documented assessment. Patient is alert, bb oriented x 3, equal unlabored respirations, skin warm/dry/pink. see triage assessment. 04:10 Reassessment: Patient is alert, oriented x 3, equal unlabored respirations, skin bb warm/dry/pink. pt resting quietly IV site intact, patent, family at bedside. 06:11 Reassessment: Patient is alert, oriented x 3, equal unlabored respirations, skin bb warm/dry/pink. pt verbalized understanding of and agrees to plan of care discharge instructions given pt ambulated with steady gait to exit accompanied by family. Vital Signs: 04/12 22:28 BP 111 / 55; Pulse 104; Resp 16 S; Temp 98.3(O); Pulse Ox 99% on R/A; Weight 86.18 kg bb (R); Height 5 ft. 5 in. (165.10 cm) (R); Pain 0/10; 04/13 05:27 BP 99 / 55; Pulse 68; Resp 16; Pulse Ox 97% ; ds4 06:12 BP 109 / 48; Pulse 78; Resp 14 S; Temp 98(O); Pulse Ox 96% on R/A; 04/12 22:28 Body Mass Index 31.62 (86.18 kg, 165.10 cm) ED Course: 04/12 21:40 Patient arrived in ED. 22:31 Triage completed. bb 22:33 Arm band placed on Patient placed in waiting room, Patient notified of wait time. bb 04/13 02:08 Antonio Morrow MD is Attending Physician. tere 02:15 Patient has correct armband on for positive identification. Call light in reach. Side bb rails up X 1. Adult w/ patient. 02:15 No provider procedures requiring assistance completed. bb 03:43 Inserted saline lock: 22 gauge in right antecubital area, using aseptic technique. ds4 Blood collected. 03:53 Adriana Schilling, SARAH is Primary Nurse. bb 03:54 Dale Cleary MD is Referral Physician. tere 04:42 Lab(s) recollected, by me, sent to lab. bb 06:13 IV discontinued, intact, bleeding controlled, No redness/swelling at site. Pressure bb dressing applied. Administered Medications: 03:53 Drug: NS 0.9% 1000 ml Route: IV; Rate: 1 bolus; Site: right antecubital; bb 04:42 Follow up: IV Status: Completed infusion; IV Intake: 1000ml bb 04:42 Drug: Tylenol 650 mg Route: PO; bb 05:59 Follow up: Response: No adverse reaction bb Intake: 04:42 IV: 1000ml; Total: 1000ml. bb Outcome: 03:55 Discharge ordered by . tere 06:13 Discharged to home ambulatory, with family. juli 06:13 Condition: stable 06:13 Discharge instructions given to patient, Instructed on discharge instructions, follow up and referral plans. medication usage, Demonstrated understanding of instructions, follow-up care, medications, Prescriptions given X 1. 06:14 Patient left the ED. bb Signatures: Antonio Morrow MD MD cha Ballard, Brenda, RN RN bb Dane Diaz ds4 Grace Ham
[2021-04-13] MEDS ORDERED: NA CHLORIDE 0.9% 1,000 ML ONE (04:09)
[2021-04-13 04:17] LABS: Absolute Lymphocytes (CBC) 2.4 K/uL (0.7-4.9); Basophils % 0.6 % (0-1.3); Hematocrit 29.3 % (36.0-45.0); Lymphocytes % 24.4 % (15.3-44.8); MPV 9.7 fL (7.6-11.3); RBC Red Blood Cell Count 4.23 M/uL (3.86-4.86)
[2021-04-13 04:36] LABS: ALT/SGPT 16 U/L (12-78); AST/SGOT 12 U/L (15-37); Albumin 3.2 g/dL (3.4-5.0); Alkaline Phosphatase 67 U/L (45-117); BUN Blood Urea Nitrogen 9 mg/dL (7-18); Bicarbonate 23 mmol/L (21-32); Bilirubin Total 0.5 mg/dL (0.2-1.0); Glucose Level 77 mg/dL (74-106); Potassium 3.7 mmol/L (3.5-5.1); Protein, Total 7.7 g/dL (6.4-8.2); Sodium Level 140 mmol/L (136-145)
[2021-04-13] MEDS ORDERED: ACETAMINOPHEN 325 MG TABLET ONE (04:54)
[2021-04-13 05:48] LABS: Protime INR 0.99
[2021-04-13 06:23] VITALS: BP 109/48; TEMP 98; O2SAT 96
== END 2021-04-13 06:14 | disposition home or self-care (01) ==
LOC: ER 21:34
DX: O99.891 Other specified diseases and conditions complicating pregnancy (principal); R04.0 Epistaxis; Z3A.22 22 weeks gestation of pregnancy; O99.012 Anemia complicating pregnancy, second trimester; D64.9 Anemia, unspecified; O99.512 Diseases of the respiratory system complicating pregnancy, second trimester; J45.909 Unspecified asthma, uncomplicated
CPT/HCPCS: 85025; 36415; 85610; 85730; 80053; 96360; 99284; J7030